=== PATIENT | female | born 1985 | race Hispanic/Latino ===

== ENCOUNTER 2018-07-25 00:33 | Emergency (ER) | payer SELFPAY ==
[2018-07-25] MEDS ORDERED: KETOROLAC 30 MG/ML INJ ONE (01:15)
[2018-07-25] MEDS ORDERED: NA CHLORIDE 0.9% 1,000 ML ONE (01:15)
[2018-07-25 01:24] LABS: Urine Blood 2+ (NEG); Urine Glucose NEGATIVE (NEG); Urine Protein TRACE (NEG); Urine Specific Gravity 1.025 (1.005-1.030)
[2018-07-25 01:26] LABS: Absolute Lymphocytes (CBC) 3.3 K/uL (0.7-4.9); Absolute Monocytes 0.5 K/uL (0.1-1.3); Absolute Neutrophil 2.7 K/uL (1.8-8.0); Basophils % 0.5 % (0-1.3); Eosinophils % 3.2 % (0-4.4); Hematocrit 36.9 % (36.0-45.0); Lymphocytes % 49.6 % (15.3-44.8); MPV 7.9 fL (7.6-11.3); Monocytes % 7.2 % (3.3-12.3); RBC Red Blood Cell Count 4.22 M/uL (3.86-4.86)
[2018-07-25 01:33] LABS: Urine Amorphous Sediment 4+ /HPF (NONE SEEN); Urine Bacteria <20 /HPF (<20); Urine Culture Reflex Order NOT NEEDED
[2018-07-25 01:37] LABS: ALT/SGPT 17 U/L (12-78); AST/SGOT 12 U/L (15-37); Albumin 3.5 g/dL (3.4-5.0); Alkaline Phosphatase 75 U/L (45-117); BUN Blood Urea Nitrogen 15 mg/dL (7-18); Bicarbonate 27 mmol/L (21-32); Bilirubin Direct < 0.1 mg/dL (0-0.2); Bilirubin Total 0.2 mg/dL (0.2-1.0); Glucose Level 114 mg/dL (74-106); Lipase 126 U/L (73-393); Potassium 3.7 mmol/L (3.5-5.1); Protein, Total 7.3 g/dL (6.4-8.2); Sodium Level 142 mmol/L (136-145)
--- NOTE | 2018-07-25 03:43 | ER ---
Nurse's Notes [facility] Name: Cornelia Phillips Age: 33 yrs Sex: Female : 1985 Arrival Date: 07/25/2018 Time: 00:35 Bed 15 Private MD: Diagnosis: Calculus of ureter-Right Presentation: 07/25 00:42 Presenting complaint: Patient states: R flank pain x 3 hours, all of a sudden; Denies lp1 any pain with urination, N/V. Transition of care: patient was not received from another setting of care. Onset of symptoms was July 24, 2018 at 22:00. Risk Assessment: Do you want to hurt yourself or someone else? Patient reports no desire to harm self or others. Initial Sepsis Screen: Does the patient meet any 2 criteria? No. Patient's initial sepsis screen is negative. Does the patient have a suspected source of infection? No. Patient's initial sepsis screen is negative. Care prior to arrival: None. 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 - Ebola Screening: : No symptoms or risks identified at this time. Screenin:45 Fall Risk None identified. lp1 01:00 Abuse screen: Denies threats or abuse. Nutritional screening: No deficits noted. jb4 Tuberculosis screening: No symptoms or risk factors identified. Assessment: 01:00 General: Appears in no apparent distress. uncomfortable, Behavior is calm, cooperative, jb4 appropriate for age. 01:00 Pain: Complains of pain in right low back and abdomen Pain does not radiate. Pain jb4 currently is 8 out of 10 on a pain scale. Quality of pain is described as burning. Neuro: Level of Consciousness is awake, alert, obeys commands, Oriented to person, place, time, situation. Cardiovascular: Patient's skin is warm and dry. Respiratory: Airway is patent Respiratory effort is even, unlabored, Respiratory pattern is regular, symmetrical. GI: Abdomen is flat, non-distended, Bowel sounds present X 4 quads. Abd is soft and non tender X 4 quads. Reports lower abdominal pain, upper abdominal pain. : No signs and/or symptoms were reported regarding the genitourinary system. EENT: No signs and/or symptoms were reported regarding the EENT system. Derm: Skin is intact, Skin is pink, warm \T\ dry. Musculoskeletal: Circulation, motion, and sensation intact. 02:00 Reassessment: Patient appears in no apparent distress at this time. Patient and/or jb4 family updated on plan of care and expected duration. Pain level reassessed. Patient is alert, oriented x 3, equal unlabored respirations, skin warm/dry/pink. 03:00 Reassessment: Patient appears in no apparent distress at this time. Patient and/or jb4 family updated on plan of care and expected duration. Pain level reassessed. Patient is alert, oriented x 3, equal unlabored respirations, skin warm/dry/pink. Patient states feeling better. 03:51 Reassessment: Pt waiting for IV Magnesium to finish prior to discharge. jb4 04:27 Reassessment: Patient appears in no apparent distress at this time. Patient and/or jb4 family updated on plan of care and expected duration. Pain level reassessed. Patient is alert, oriented x 3, equal unlabored respirations, skin warm/dry/pink. Pt left ED Ambulatory, feeling better. Patient states feeling better. Vital Signs: 00:44 BP 128 / 96; Pulse 84; Resp 16; Temp 98.5(O); Pulse Ox 98% on R/A; Weight 44 kg; Height lp1 4 ft. 11 in. (149.86 cm); Pain 8/10; 01:00 BP 107 / 73; Pulse 61; Resp 16; Pulse Ox 99% on R/A; jb4 02:00 BP 94 / 62; Pulse 60; Resp 18; Pulse Ox 99% on R/A; jb4 03:00 BP 91 / 61; Pulse 60; Resp 16; Pulse Ox 97% on R/A; jb4 04:20 BP 102 / 73; Pulse 76; Resp 16; Pulse Ox 100% on R/A; jb4 00:44 Body Mass Index 19.59 (44.00 kg, 149.86 cm) lp1 ED Course: 00:35 Patient arrived in ED. es 00:41 Prem Thompson PA is PHCP. cp 00:41 Abhilash Olivarez MD is Attending Physician. cp 00:44 Triage completed. lp1 00:44 Arm band placed on. lp1 00:46 Fredy Juan, NICHOLAS is Primary Nurse. jb4 00:56 Urine Microscopic Only Sent. oe 01:00 Patient has correct armband on for positive identification. Bed in low position. Call jb4 light in reach. Side rails up X 1. Pulse ox on. NIBP on. 01:00 Initial lab(s) drawn, by me, sent to lab. Inserted saline lock: 20 gauge in right jb4 antecubital area, using aseptic technique. Blood collected. 02:[address] via wheelchair. kw1 02:44 CT completed. Patient tolerated procedure well. Patient moved back from CT. kw1 02:45 CT Stone Protocol In Process Unspecified. EDMS 03:41 Jaspreet Harden MD is Referral Physician. cp 04:28 No provider procedures requiring assistance completed. IV discontinued, intact, jb4 bleeding controlled, No redness/swelling at site. Administered Medications: 01:10 Drug: TORadol 15 mg Route: IVP; Site: right antecubital; jb4 01:40 Follow up: Response: No adverse reaction; Pain is decreased jb4 01:10 Drug: NS 0.9% (20 ml/kg) 20 ml/kg Route: IV; Rate: 1 bolus; Site: right antecubital; jb4 02:00 Follow up: Response: No adverse reaction; IV Status: Completed infusion; IV Intake: jb4 880ml 03:39 Drug: Flomax 0.4 mg Route: PO; jb4 04:26 Follow up: Response: No adverse reaction jb4 03:51 Drug: Magnesium Sulfate 1 grams Route: IVPB; Infused Over: 30 hrs; Site: right jb4 antecubital; 04:21 Follow up: Response: No adverse reaction; IV Status: Completed infusion; IV Intake: jb4 100ml 03:52 Not Given (Physician Discretion): NS 0.9% (20 ml/kg) 20 ml/kg IV at 1 bolus once jb4 03:53 Drug: Bactrim (160 mg-800 mg (DS) 1 tablet Route: PO; jb4 04:26 Follow up: Response: No adverse reaction jb4 Intake: 02:00 IV: 880ml; Total: 880ml. jb4 04:21 IV: 100ml; Total: 980ml. jb4 Outcome: 03:42 Discharge ordered by MD. bridget 04:28 Discharged to home ambulatory. jb4 04:28 Condition: stable 04:28 Discharge instructions given to patient, Instructed on discharge instructions, follow up and referral plans. medication usage, Demonstrated understanding of instructions, follow-up care, medications, Prescriptions given X 4. 04:29 Patient left the ED. jb4 Signatures: Dispatcher [employer] Mackenzie Borden Laura, RN RN lp1 Prem Thompson PA PA cp Bryson, James, RN RN jb4 Joey Rizzo Kimberly kw1
--- NOTE | 2018-07-25 03:43 | EDPHYS ---
Physician Documentation [facility] Name: Cornelia Phillips Age: 33 yrs Sex: Female : 1985 Arrival Date: 07/25/2018 Time: 00:35 Bed 15 Private MD: ED Physician Abhilash Olivarez HPI: 07/25 00:48 This 33 yrs old Female presents to ER via Ambulatory with complaints of Flank cp Pain. 00:48 The patient complains of pain in the right mid back and right low back. The pain does cp not radiate. Onset: The symptoms/episode began/occurred suddenly, 2 hour(s) ago. 00:48 Associated signs and symptoms: Pertinent negatives: dysuria, fever, pain radiating to cp the lower extremities, vomiting. 00:48 Severity of pain: in the emergency department the pain is unchanged despite home cp interventions. 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 - Ebola Screening: : No symptoms or risks identified at this time. ROS: 00:49 Constitutional: Negative for body aches, chills, fever, poor PO intake. cp 00:49 Cardiovascular: Negative for chest pain, palpitations. 00:49 Respiratory: Negative for cough, shortness of breath, wheezing. 00:49 Abdomen/GI: Negative for abdominal pain, vomiting, diarrhea, constipation. 00:49 Back: Positive for flank pain, on the right, Negative for radiated pain. 00:49 Skin: Negative for cellulitis, rash. 00:49 Neuro: Negative for altered mental status, headache, weakness. 00:49 All other systems are negative. Exam: 00:55 Constitutional: The patient appears in no acute distress, alert, awake, non-toxic, well cp developed, well nourished. 00:55 Head/Face: Normocephalic, atraumatic. cp 00:55 Eyes: Periorbital structures: appear normal, Conjunctiva: normal, no exudate, no injection, Sclera: no appreciated abnormality, Lids and lashes: appear normal, bilaterally. 00:55 ENT: External ear(s): are unremarkable, Nose: is normal, Mouth: Lips: moist, Oral mucosa: moist, Posterior pharynx: Airway: no evidence of obstruction, patent. 00:55 Chest/axilla: Inspection: normal, Palpation: is normal, no crepitus, no tenderness. 00:55 Cardiovascular: Rate: normal, Rhythm: regular. 00:55 Respiratory: the patient does not display signs of respiratory distress, Respirations: normal, no use of accessory muscles, no retractions, no splinting, no tachypnea, labored breathing, is not present, Breath sounds: are clear throughout, no decreased breath sounds, no stridor, no wheezing. 00:55 Abdomen/GI: Inspection: abdomen appears normal, Bowel sounds: active, all quadrants, Palpation: soft, in all quadrants, mild abdominal tenderness, in the right upper quadrant, rebound tenderness, is not appreciated, involuntary guarding, is not appreciated. 00:55 Back: ROM is normal, CVA tenderness, that is moderate, is noted on the right. 00:55 Skin: cellulitis, is not appreciated, no rash present. Vital Signs: 00:44 BP 128 / 96; Pulse 84; Resp 16; Temp 98.5(O); Pulse Ox 98% on R/A; Weight 44 kg; Height lp1 4 ft. 11 in. (149.86 cm); Pain 8/10; 01:00 BP 107 / 73; Pulse 61; Resp 16; Pulse Ox 99% on R/A; jb4 02:00 BP 94 / 62; Pulse 60; Resp 18; Pulse Ox 99% on R/A; jb4 03:00 BP 91 / 61; Pulse 60; Resp 16; Pulse Ox 97% on R/A; jb4 04:20 BP 102 / 73; Pulse 76; Resp 16; Pulse Ox 100% on R/A; jb4 00:44 Body Mass Index 19.59 (44.00 kg, 149.86 cm) lp1 MDM: 00:47 Patient medically screened. cp 01:00 Differential diagnosis: nephrolithiasis, pyelonephritis, UTI, diverticulitis, cp pancreatitis, cholecystitis. 03:40 Data reviewed: vital signs, nurses notes, lab test result(s), radiologic studies, CT cp scan, and as a result, I will discharge patient. 03:40 Counseling: I had a detailed discussion with the patient and/or guardian regarding: the cp historical points, exam findings, and any diagnostic results supporting the discharge/admit diagnosis, lab results, radiology results, to return to the emergency department if symptoms worsen or persist or if there are any questions or concerns that arise at home. Response to treatment: the patient's symptoms have markedly improved after treatment, VSS. Pain markedly improved, and as a result, I will discharge patient. 07/25 00:47 Order name: Basic Metabolic Panel 07/25 00:47 Order name: CBC with Diff 07/25 00:47 Order name: Creatinine for Radiology; Complete Time: 02:21 07/25 00:47 Order name: Hepatic Function; Complete Time: 02:21 cp 07/25 03:31 Interpretation: Normal except: AST 12; GLOB 3.8; A/G 0.9. 07/25 00:47 Order name: Lipase; Complete Time: 02:21 cp 07/25 00:47 Order name: Urine Microscopic Only; Complete Time: 02:21 cp 07/25 02:21 Interpretation: Normal except: URBC 5-10; AMORPH 4+. cp 07/25 00:48 Order name: Basic Metabolic Panel; Complete Time: 02:21 EDMS 07/25 03:31 Interpretation: Normal except: CL 108; GLUC 114. 07/25 00:48 Order name: CBC with Automated Diff; Complete Time: 01:31 EDMS 07/25 01:31 Interpretation: Normal except: MCV 87.3; PLT 437; SHANIQUA% 39.5; LYM% 49.6. cp 07/25 00:49 Order name: CT Stone Protocol 07/25 01:04 Order name: Urine Dipstick--Ancillary (enter results); Complete Time: : mw2 07/25 01:04 Order name: Urine --Ancillary (enter results); Complete Time: : mw2 07/25 00:47 Order name: IV Saline Lock; Complete Time: : cp 07/25 00:47 Order name: Labs collected and sent; Complete Time: : cp 07/25 00:47 Order name: Urine Dipstick-Ancillary (obtain specimen); Complete Time: 00:56 cp 07/25 00:47 Order name: Urine Test (obtain specimen); Complete Time: 00:56 cp 07/25 03:30 Order name: PO challenge; Complete Time: 03:39 cp Administered Medications: 01:10 Drug: TORadol 15 mg Route: IVP; Site: right antecubital; jb4 01:40 Follow up: Response: No adverse reaction; Pain is decreased jb4 01:10 Drug: NS 0.9% (20 ml/kg) 20 ml/kg Route: IV; Rate: 1 bolus; Site: right antecubital; jb4 02:00 Follow up: Response: No adverse reaction; IV Status: Completed infusion; IV Intake: jb4 880ml 03:39 Drug: Flomax 0.4 mg Route: PO; jb4 04:26 Follow up: Response: No adverse reaction jb4 03:51 Drug: Magnesium Sulfate 1 grams Route: IVPB; Infused Over: 30 hrs; Site: right jb4 antecubital; 04:21 Follow up: Response: No adverse reaction; IV Status: Completed infusion; IV Intake: jb4 100ml 03:52 Not Given (Physician Discretion): NS 0.9% (20 ml/kg) 20 ml/kg IV at 1 bolus once jb4 03:53 Drug: Bactrim (160 mg-800 mg (DS) 1 tablet Route: PO; jb4 04:26 Follow up: Response: No adverse reaction jb4 Disposition: 03:50 Chart complete. cp 06:13 Co-signature as Attending Physician, Abhilash Olivarez MD I agree with the assessment and 4 plan of care. Disposition: 07/25/18 03:42 Discharged to Home. Impression: Calculus of ureter - Right. - Condition is Stable. - Discharge Instructions: Kidney Stones, Renal Colic. - Prescriptions for Tylenol- Codeine #3 300-30 mg Oral Tablet - take 2 tablets by ORAL route every 6 hours As needed; 20 tablet. Zofran 4 mg Oral Tablet - take 1 tablet by ORAL route every 12 hours As needed; 20 tablet. Flomax 0.4 mg Oral Capsule, Sust. Release 24 hr - take 1 capsule by ORAL route once daily As needed 1/2 hour following the same meal each day; 5 capsule. Bactrim DS 800- 160 mg Oral Tablet - take 1 tablet by ORAL route every 12 hours for 7 days; 14 tablet. - Medication Reconciliation Form, Thank You Letter, Antibiotic Education, Prescription Opioid Use form. - Follow up: Jaspreet Harden MD; When: 2 - 3 days; Reason: pain continues. - Problem is new. - Symptoms have improved. Signatures: Dispatcher [employer] EDMS Lita Wetzel RN RN lp1 Prem Thompson PA PA cp Bryson, James, RN RN jb4 Abhilash Olivarez MD MD tw4 Corrections: (The following items were deleted from the chart) 04:29 03:42 07/25/2018 03:42 Discharged to Home. Impression: Calculus of ureter - Right. jb4 Condition is Stable. Forms are Medication Reconciliation Form, Thank You Letter, Antibiotic Education, Prescription Opioid Use. Follow up: Jaspreet Harden; When: 2 - 3 days; Reason: pain continues. Problem is new. Symptoms have improved. cp
[2018-07-25] MEDS ORDERED: TAMSULOSIN 0.4 MG SR CAP ONE (03:49)
[2018-07-25] MEDS ORDERED: SMZ./TMP. 800/160 MG TABLET ONE (03:54)
[2018-07-25] MEDS ORDERED: MAGNESIUM SULFATE 1 gm IVPB 1 GM/100 ML BAG IV ONE (03:54)
--- NOTE | 2018-07-25 11:03 | RAD REPORT ---
EXAM DESCRIPTION: CT - Stone Protocol - 07/25/2018 4:02 am CLINICAL HISTORY: The patient is 33 years old and is Female; right flank pain TECHNIQUE: Axial computed tomography images of the abdomen and pelvis without intravenous contrast. Sagittal and coronal reformatted images were created and reviewed. This CT exam was performed usi ng one or more of the following dose reduction techniques: automated exposure control, adjustment o f the mA and/or kV according to patient size, and/or use of iterative reconstruction technique. COMPARISON: None. FINDINGS: LUNG BASES: Unremarkable. No mass. No consolidation. ABDOMEN: LIVER: Unremarkable. GALLBLADDER AND BILE DUCTS: Unremarkable. No calcified stones. No ductal dilation. PANCREAS: Unremarkable. No ductal dilation. SPLEEN: Unremarkable. No splenomegaly. ADRENALS: Unremarkable. No mass. KIDNEYS AND URETERS: Multiple nonobstructive bilateral renal stones are present in the collecting systems. Mild right hydronephrosis and hydroureter. A 3 mm radiopaque stone is seen in the proximal r ight ureter (series 2 one, image 57). No intrarenal stone in the urinary bladder. STOMACH AND BOWEL: Unremarkable. No obstruction. No mucosal thickening. PELVIS: APPENDIX: The appendix is seen and is within normal limits BLADDER: See above. REPRODUCTIVE: Unremarkable as visualized. ABDOMEN and PELVIS: INTRAPERITONEAL SPACE: Unremarkable. No free air. No significant fluid collection. BONES/JOINTS: No acute fracture. No dislocation. SOFT TISSUES: Unremarkable. VASCULATURE: Unremarkable. No abdominal aortic aneurysm. LYMPH NODES: Unremarkable. No enlarged lymph nodes. IMPRESSION: 1. 3 mm obstructive proximal right ureteral stone with mild hydronephrosis/proximal hy droureter. 2. Additional nonobstructive bilateral renal calculi. Electronically signed by: Tj Vasquez DO 07/25/2018 2:54 AM CDT Due to temporary technical issues with the PACS/Fluency reporting system, reports are being signed by the in house radiologist as a courtesy to ensure prompt reporting. The interpreting radiologist is hemal jin responsible for the content of the report.
== END 2018-07-25 04:29 | disposition home or self-care (01) ==
LOC: ER 00:33
DX: N20.1 Calculus of ureter (principal); Z72.0 Tobacco use; Z88.0 Allergy status to penicillin; Z88.1 Allergy status to other antibiotic agents
CPT/HCPCS: 36415; 74176; 76377; 80048; 80076; 81003; 81015; 81025; 83690; 85025; 96361; 96365; 96375; 99284; J3475; J7030

== ENCOUNTER 2018-08-14 11:24 | Emergency (ER) | payer SELFPAY ==
[2018-08-14 12:22] LABS: Urine Blood NEGATIVE (NEG); Urine Glucose NEGATIVE (NEG); Urine Protein 2+ (NEG); Urine Specific Gravity >1.030 (1.005-1.030)
[2018-08-14 12:23] LABS: Absolute Lymphocytes (CBC) 1.8 K/uL (0.7-4.9); Absolute Monocytes 0.2 K/uL (0.1-1.3); Absolute Neutrophil 2.7 K/uL (1.8-8.0); Basophils % 0.3 % (0-1.3); Eosinophils % 2.9 % (0-4.4); Hematocrit 36.5 % (36.0-45.0); Lymphocytes % 37.8 % (15.3-44.8); MPV 8.4 fL (7.6-11.3); Monocytes % 4.4 % (3.3-12.3); RBC Red Blood Cell Count 4.13 M/uL (3.86-4.86)
--- NOTE | 2018-08-14 12:42 | RAD REPORT ---
EXAM DESCRIPTION: CT - Stone Protocol - 08/14/2018 12:35 pm CLINICAL HISTORY: Flank pain. persistent pain for 3 weeks, not improving, + kidney stone COMPARISON: Stone Protocol dated 07/25/2018 TECHNIQUE: Axial images were obtained without oral or IV contrast. Lack of contrast limits solid org an and vascular assessment. The [id number] spans the entirety of the system partially obscuring uppermost abdomen and lung bases. Coronal reformatted images were obtained and reviewed. All CT scans are performed using dose optimization technique as appropriate and may include automated exposure control or mA/KV adjustment according to patient size. FINDINGS: The lower lung cook are clear. Imaged portions of the liver and spleen show no suspicious findings on non-contrast imaging. The panc reas and adrenal glands are normal. No pathologic lymphadenopathy in the abdomen or pelvis. Punctate bilateral nephrolithiasis is present without hydronephrosis. No bowel obstruction, free air, free fluid or abscess. Normal appendix noted. No significant bony abnormality. IMPRESSION: Punctate bilateral nephrolithiasis without hydronephrosis.
[2018-08-14 12:43] LABS: ALT/SGPT 21 U/L (12-78); AST/SGOT 14 U/L (15-37); Albumin 3.6 g/dL (3.4-5.0); Alkaline Phosphatase 58 U/L (45-117); BUN Blood Urea Nitrogen 7 mg/dL (7-18); Bicarbonate 25 mmol/L (21-32); Bilirubin Direct 0.1 mg/dL (0-0.2); Bilirubin Total 0.6 mg/dL (0.2-1.0); Glucose Level 89 mg/dL (74-106); Potassium 3.7 mmol/L (3.5-5.1); Protein, Total 6.8 g/dL (6.4-8.2); Sodium Level 143 mmol/L (136-145)
--- NOTE | 2018-08-14 13:01 | ER ---
Nurse's Notes [facility] Name: Cornelia Phillips Age: 33 yrs Sex: Female : 1985 Arrival Date: 08/14/2018 Time: 11:26 Bed 26 Private MD: Diagnosis: Urinary tract infection, site not specified Presentation: 08/14 11:28 Presenting complaint: Patient states: right flank pain and burning with urination that aa5 began 3-4 days ago. Pt denies nausea, denies vomiting. Transition of care: patient was not received from another setting of care. Onset of symptoms was August 2018. Risk Assessment: Do you want to hurt yourself or someone else? Patient reports no desire to harm self or others. Initial Sepsis Screen: Does the patient meet any 2 criteria? No. Patient's initial sepsis screen is negative. Does the patient have a suspected source of infection? No. Patient's initial sepsis screen is negative. Care prior to arrival: None. 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 - Social history:: Smoking status: Patient uses tobacco products, 3 cigarettes a day . - Ebola Screening: : No symptoms or risks identified at this time. - Family history:: not pertinent. - Hospitalizations: : No recent hospitalization is reported. Screenin:00 Abuse screen: Denies threats or abuse. Denies injuries from another. Nutritional aj1 screening: No deficits noted. Tuberculosis screening: No symptoms or risk factors identified. 13:20 Fall Risk None identified. aj1 Assessment: 12:00 General: Appears in no apparent distress. uncomfortable, Behavior is calm, cooperative, aj1 appropriate for age. Pain: Complains of pain in right mid back Pain currently is 7 out of 10 on a pain scale. Neuro: Level of Consciousness is awake, alert, obeys commands, Oriented to person, place, time, situation. Cardiovascular: Patient's skin is warm and dry. Respiratory: Airway is patent Respiratory effort is even, unlabored, Respiratory pattern is regular, symmetrical. GI: No signs and/or symptoms were reported involving the gastrointestinal system. : Reports burning with urination. EENT: No signs and/or symptoms were reported regarding the EENT system. Derm: No signs and/or symptoms reported regarding the dermatologic system. Skin is pink, warm \T\ dry. normal. Musculoskeletal: No signs and/or symptoms reported regarding the musculoskeletal system. Circulation, motion, and sensation intact. 13:00 Reassessment: Patient appears in no apparent distress at this time. No changes from aj1 previously documented assessment. Patient and/or family updated on plan of care and expected duration. Pain level reassessed. Patient is alert, oriented x 3, equal unlabored respirations, skin warm/dry/pink. Vital Signs: 11:29 BP 119 / 85; Pulse 85; Resp 16 S; Temp 98.0(TE); Pulse Ox 99% on R/A; Weight 44 kg (R); aa5 Height 4 ft. 11 in. (149.86 cm) (R); Pain 7/10; 13:32 BP 107 / 56; Pulse 63; Resp 18; Pulse Ox 99% on R/A; aj1 11:29 Body Mass Index 19.59 (44.00 kg, 149.86 cm) aa5 ED Course: 11:26 Patient arrived in ED. aa5 11:28 Triage completed. aa5 11:30 Arm band placed on. aa5 11:31 Fadi Corcker MD is Attending Physician. rn 11:46 Sandi Meza, NICHOLAS is Primary Nurse. aj1 12:00 Patient has correct armband on for positive identification. aj1 12:00 No provider procedures requiring assistance completed. aj1 12:00 Inserted saline lock: 20 gauge in right antecubital area, using aseptic technique. aj1 Blood collected. 12:35 CT Stone Protocol In Process Unspecified. EDMS 13:32 IV discontinued, intact, bleeding controlled, No redness/swelling at site. Pressure aj1 dressing applied. Administered Medications: No medications were administered Outcome: 13:01 Discharge ordered by . rn 13:33 Discharged to home ambulatory. aj1 13:33 Condition: good 13:33 Discharge instructions given to patient, Instructed on discharge instructions, follow up and referral plans. no drinking with medication, no driving heavy equipment, medication usage, Demonstrated understanding of instructions, follow-up care, medications, Prescriptions given X 3. 13:33 Patient left the ED. aj1 Signatures: Dispatcher [employer] EDSandi Lynn RN RN aj1 Fadi Crocker MD MD rn Calderon, Audri, RN RN aa5 Corrections: (The following items were deleted from the chart) 13:33 13:32 BP 107 / 56; Pulse 18bpm; Resp 63bpm; Pulse Ox 99% RA; aj1 aj1
--- NOTE | 2018-08-14 13:01 | EDPHYS ---
Physician Documentation [facility] Name: Cornelia Phillips Age: 33 yrs Sex: Female : 1985 Arrival Date: 08/14/2018 Time: 11:26 Bed 26 Private MD: ED Physician Fadi Crocker HPI: 08/14 11:51 This 33 yrs old Female presents to ER via Ambulatory with complaints of Flank rn Pain. 11:51 The patient complains of pain in the right mid back. The pain does not radiate. Onset: rn The symptoms/episode began/occurred 3 week(s) ago. Modifying factors: The symptoms are alleviated by nothing. the symptoms are aggravated by nothing. Associated signs and symptoms: Pertinent positives: dysuria, urinary frequency. Severity of pain: At its worst the pain was moderate in the emergency department the pain is unchanged. The patient has experienced similar episodes in the past. REpots seen here about 3 weeks ago for similar pain, told had kidney stone, no fever, no trauma, Reports dysuria and increased frequency, told had kidney stone, not sure if passed it, reports pain returning. . PHOTOGRAPHIC DOUBLE: 11:29 LMP 06/2018 aa5 Historical: - Allergies: 11:29 Amoxicillin; aa5 11:29 Augmentin; aa5 11:29 Azithromycin; aa5 11:29 Erythromycin; aa5 11:29 PENICILLINS; aa5 11:29 tramadol; aa5 - PMHx: 11:29 Hypothyroidism; aa5 - PSHx: 11:29 ; aa5 - Immunization history:: Flu vaccine is not up to date. - Social history:: Smoking status: Patient uses tobacco products, 3 cigarettes a day . - Ebola Screening: : No symptoms or risks identified at this time. - Family history:: not pertinent. - Hospitalizations: : No recent hospitalization is reported. ROS: 11:51 Constitutional: Negative for fever, chills, and weight loss, Eyes: Negative for injury, rn pain, redness, and discharge, Cardiovascular: Negative for chest pain, palpitations, and edema, Respiratory: Negative for shortness of breath, cough, wheezing, and pleuritic chest pain, Abdomen/GI: Negative for abdominal pain, nausea, vomiting, diarrhea, and constipation, Back: + right flank pain : Negative for injury, bleeding, discharge, and swelling, MS/Extremity: Negative for injury and deformity, Skin: Negative for injury, rash, and discoloration, Neuro: Negative for headache, weakness, numbness, tingling, and seizure. Exam: 11:51 Constitutional: This is a well developed, well nourished patient who is awake, alert, rn and in no acute distress. Head/Face: Normocephalic, atraumatic. ENT: MMM Abdomen/GI: soft, non-tender, no rebound Back: No spinal tenderness. No costovertebral tenderness. Full range of motion. Skin: Warm, dry with normal turgor. Normal color with no rashes, no lesions, and no evidence of cellulitis. MS/ Extremity: Pulses equal, no cyanosis. Neurovascular intact. Full, normal range of motion. Equal circumference. Neuro: Awake and alert, GCS 15, oriented to person, place, time, and situation. Cranial nerves II-XII grossly intact. Motor strength 5/5 in all extremities. Sensory grossly intact. Vital Signs: 11:29 BP 119 / 85; Pulse 85; Resp 16 S; Temp 98.0(TE); Pulse Ox 99% on R/A; Weight 44 kg (R); aa5 Height 4 ft. 11 in. (149.86 cm) (R); Pain 7/10; 13:32 BP 107 / 56; Pulse 63; Resp 18; Pulse Ox 99% on R/A; aj1 11:29 Body Mass Index 19.59 (44.00 kg, 149.86 cm) aa5 MDM: 11:31 Patient medically screened. rn 13:00 Differential diagnosis: nephrolithiasis, UTI. Data reviewed: vital signs, nurses notes, rn cvicu test result(s), radiologic studies, CT scan, and as a result, I will discharge patient. Counseling: I had a detailed discussion with the patient and/or guardian regarding: the historical points, exam findings, and any diagnostic results supporting the discharge/admit diagnosis, lab results, radiology results, the need for outpatient follow up, to return to the emergency department if symptoms worsen or persist or if there are any questions or concerns that arise at home. Special discussion: I discussed with the patient/guardian in detail that at this point there is no indication for admission to the hospital. It is understood, however, that if the symptoms persist or worsen the patient needs to return immediately for re-evaluation. 08/14 11:44 Order name: Urine Dipstick--Ancillary (enter results); Complete Time: 12:43 bd 08/14 11:44 Order name: Urine --Ancillary (enter results); Complete Time: 12:43 bd 08/14 11:51 Order name: Basic Metabolic Panel; Complete Time: 12:43 rn 08/14 11:51 Order name: CBC with Diff; Complete Time: 12:43 rn 08/14 11:51 Order name: Hepatic Function; Complete Time: 12:43 rn 08/14 11:51 Order name: Urine Microscopic Only rn 08/14 11:51 Order name: IV Saline Lock; Complete Time: 12:50 rn 08/14 11:51 Order name: Labs collected and sent; Complete Time: 12:50 rn 08/14 11:51 Order name: CT Stone Protocol; Complete Time: 12:43 rn 08/14 13:09 Order name: Urine Culture EDMS Administered Medications: No medications were administered Disposition: 08/14/18 13:01 Discharged to Home. Impression: Urinary tract infection, site not specified. - Condition is Stable. - Discharge Instructions: Dysuria, Urinary Tract Infection, Adult. - Prescriptions for Pyridium 200 mg Oral Tablet - take 1 tablet by ORAL route every 8 hours for 3 days; 9 tablet. Tylenol- Codeine #3 300-30 mg Oral Tablet - take 1 tablet by ORAL route every 6 hours As needed; 15 tablet. Macrobid 100 mg Oral Capsule - take 1 capsule by ORAL route every 12 hours for 7 days; 14 capsule. - Work release form, Medication Reconciliation Form, Thank You Letter, Antibiotic Education, Prescription Opioid Use form. - Follow up: Private Physician; When: As needed; Reason: Recheck today's complaints, Re-evaluation by your physician. - Problem is an ongoing problem. - Symptoms have improved. Signatures: Dispatcher [employer] EDMS Sandi Meza RN RN aj1 Fadi Crocker MD MD rn Calderon, Audri, RN RN aa5 Corrections: (The following items were deleted from the chart) 13:33 13:01 08/14/2018 13:01 Discharged to Home. Impression: Urinary tract infection, site aj1 not specified. Condition is Stable. Forms are Medication Reconciliation Form, Thank You Letter, Antibiotic Education, Prescription Opioid Use. Follow up: Private Physician; When: As needed; Reason: Recheck today's complaints, Re-evaluation by your physician. Problem is an ongoing problem. Symptoms have improved. rn
[2018-08-14 13:08] LABS: Urine Bacteria >50 /HPF (<20); Urine Culture Reflex Order REFLEXED; Urine Mucus MOD /HPF (NONE SEEN)
== END 2018-08-14 13:33 | disposition home or self-care (01) ==
LOC: ER 11:24
DX: N39.0 Urinary tract infection, site not specified (principal); E03.9 Hypothyroidism, unspecified; Z88.1 Allergy status to other antibiotic agents; Z88.5 Allergy status to narcotic agent; Z88.0 Allergy status to penicillin
CPT/HCPCS: 36415; 74176; 76377; 80048; 80076; 81003; 81015; 81025; 85025; 87086; 87088; 99284

== ENCOUNTER 2018-10-05 18:02 | Emergency (ER) | payer SELFPAY ==
[2018-10-05] MEDS ORDERED: NA CHLORIDE 0.9% 1,000 ML ONE (18:44)
[2018-10-05 18:45] LABS: Absolute Lymphocytes (CBC) 2.5 K/uL (0.7-4.9); Absolute Monocytes 0.4 K/uL (0.1-1.3); Absolute Neutrophil 5.3 K/uL (1.8-8.0); Basophils % 0.5 % (0-1.3); Hematocrit 37.1 % (36.0-45.0); MPV 8.1 fL (7.6-11.3); Monocytes % 4.3 % (3.3-12.3); RBC Red Blood Cell Count 4.16 M/uL (3.86-4.86)
[2018-10-05 19:05] LABS: BUN Blood Urea Nitrogen 8 mg/dL (7-18); Bicarbonate 24 mmol/L (21-32); Glucose Level 110 mg/dL (74-106); Potassium 3.1 mmol/L (3.5-5.1); Sodium Level 142 mmol/L (136-145); Thyroid Stimulating Hormone 0.446 uIU/mL (0.360-3.740)
--- NOTE | 2018-10-05 19:28 | ER ---
Nurse's Notes [facility] Name: Cornelia Phillips Age: 33 yrs Sex: Female : 1985 Arrival Date: 10/05/2018 Time: 18:04 Bed 2 Private MD: Diagnosis: Heat fatigue, transient;Hypokalemia Presentation: 10/05 18:05 Presenting complaint: EMS states: pt has a hx of seizure, family states the doctor wont tw2 give her seizure medication because she is underweight, family states that she is having a high stress level right now, they are moving, family states they told her to go lay down, and then they went to check on her and found her seizing, total of 7 minutes, we used a NPA to facilitate respiratory efforts, we gave 5mg Versed when we arrived, then immediately pt started having a panic attack, vs stable, blood sugar 106 mg/dL. Transition of care: patient was not received from another setting of care. Onset of symptoms was October 05, 2018. Risk Assessment: Do you want to hurt yourself or someone else? Patient reports no desire to harm self or others. Initial Sepsis Screen: Does the patient meet any 2 criteria? No. Patient's initial sepsis screen is negative. Does the patient have a suspected source of infection? No. Patient's initial sepsis screen is negative. Care prior to arrival: nasal trumpet, IV initiated. 20 GA, in the left wrist, Glucose check: 106. 18:05 Method Of Arrival: EMS: [facility] tw2 18:05 Acuity: LYLA 2 tw2 18:08 Note EMS states "we did remove the nasal trumpet once she came around". tw2 Triage Assessment: 18:09 General: Appears in no apparent distress. slender, Behavior is cooperative. Pain: tw2 Complains of pain in Headache. EENT: No signs and/or symptoms were reported regarding the EENT system. Neuro: Reports headache. Cardiovascular: Heart tones S1 S2 Patient's skin is warm and dry. Respiratory: Airway is patent Respiratory effort is Respiratory pattern is regular, symmetrical, Breath sounds are clear bilaterally. GI: No signs and/or symptoms were reported involving the gastrointestinal system. Abdomen is flat, Bowel sounds present X 4 quads. : No signs and/or symptoms were reported regarding the genitourinary system. Derm: No signs and/or symptoms reported regarding the dermatologic system. Musculoskeletal: Range of motion: intact in all extremities. Historical: - Allergies: 18:13 Augmentin; tw2 18:13 Amoxicillin; tw2 18:13 Azithromycin; tw2 18:13 Erythromycin; tw2 18:13 PENICILLINS; tw2 18:13 tramadol; tw2 - PMHx: 18:13 Hypothyroidism; Seizures; tw2 - PSHx: 18:13 ; tw2 - Immunization history:: Adult Immunizations. - Social history:: Smoking status: . - Ebola Screening: : Patient denies travel to an Ebola-affected area in the 21 days before illness onset. Screenin:13 Abuse screen: Denies threats or abuse. Nutritional screening: No deficits noted. tw2 Tuberculosis screening: No symptoms or risk factors identified. Fall Risk None identified. Assessment: 18:11 Reassessment: see triage assessment. tw2 19:01 Reassessment: Patient appears in no apparent distress at this time. No changes from tw2 previously documented assessment. Patient and/or family updated on plan of care and expected duration. Pain level reassessed. Patient is alert, oriented x 3, equal unlabored respirations, skin warm/dry/pink. 19:15 Reassessment: Patient appears in no apparent distress at this time. Patient and/or cc3 family updated on plan of care and expected duration. Pain level reassessed. Patient is alert, oriented x 3, equal unlabored respirations, skin warm/dry/pink. Received this female patient from morning shift NICHOLAS Bowling as a case of probable seizure. With IV cannula gauge 20 at the left forearm with ongoing NS 1liter at 125 mL/hr infusing well. Patient denies pain at this time. 19:45 Reassessment: Patient appears in no apparent distress at this time. Patient is alert, ak1 oriented x 3, equal unlabored respirations, skin warm/dry/pink. pt assisted to bedside commode. Patient states feeling better. Patient states symptoms have improved. 19:45 Reassessment: Patient appears in no apparent distress at this time. Patient is alert, ak1 oriented x 3, equal unlabored respirations, skin warm/dry/pink. pt ambulatory to wheelchair at discharge. pt left with family member. Patient denies pain at this time. Patient states feeling better. Patient states symptoms have improved. Vital Signs: 18:10 BP 105 / 78; Pulse 101; Resp 13; Temp 98.6(O); Pulse Ox 100% on R/A; Weight 45.81 kg tw2 (R); Height 5 ft. 4 in. (162.56 cm); Pain 9/10; 19:01 BP 107 / 67; Pulse 64; Resp 17; Pulse Ox 99% on R/A; tw2 20:08 BP 113 / 74; Pulse 80; Resp 16; Temp 98.4(TE); Pulse Ox 99% on R/A; Pain 0/10; ak1 18:10 Body Mass Index 17.34 (45.81 kg, 162.56 cm) tw2 [place] Coma Score: 18:09 Eye Response: spontaneous(4). Verbal Response: oriented(5). Motor Response: obeys tw2 commands(6). Total: 15. ED Course: 18:04 Patient arrived in ED. tw2 18:08 Triage completed. tw2 18:10 Arm band placed on. tw2 18:11 Placed in gown. Call light in reach. Side rails up X 1. Side rails up X2. Adult w/ tw2 patient. Seizure precautions initiated. monitoring and evaluation advisor on. Pulse ox on. NIBP on. Warm blanket given. 18:15 Vandana Wells FNP-C [facility]. snw 18:15 Aguila Hall MD is Attending Physician. snw 19:00 Report given to NICHOLAS Mccarthy. tw2 19:03 Shari Velazco is Primary Nurse. cc3 20:09 No provider procedures requiring assistance completed. IV discontinued, intact, ak1 bleeding controlled, No redness/swelling at site. Pressure dressing applied, 20g to left wrist in place prior to this nurse taking over care. the 20g in left wrist was removed prior to discharge. Administered Medications: 18:36 Drug: NS 0.9% 1000 ml Route: IV; Rate: 125 ml/hr; Site: left forearm; ae4 20:00 Follow up: Response: No adverse reaction; IV Status: Order to discontinue infusion; IV cc3 Intake: 125ml ; patient ordered for discharge home 19:25 Drug: Potassium Effervescent Tablet 50 mEq Route: PO; cc3 19:30 Follow up: Response: No adverse reaction cc3 Intake: 20:00 IV: 125ml; Total: 125ml. cc3 Outcome: 19:27 Discharge ordered by . lalit 20:10 Discharged to home via wheelchair, with family. ak1 20:10 Condition: improved 20:10 Discharge instructions given to patient, family, Instructed on discharge instructions, follow up and referral plans. Demonstrated understanding of instructions, follow-up care. 20:10 Patient left the ED. ak1 Signatures: Vandana Wells, HEAT SEAL OPERATOR-C HEAT SEAL OPERATOR-Csnw Jazmine Maher, RN RN ak1 Tawnya Rivera RN RN tw2 Shari Velazco cc3 Unruly Patiño, RN RN ae4 Corrections: (The following items were deleted from the chart) 10/06 01:07 01:06 Response: No adverse reaction; IV Status: Order to discontinue infusion; IV cc3 Intake: 125ml ; patient ordered for discharge home cc3
--- NOTE | 2018-10-05 19:28 | EDPHYS ---
Physician Documentation [facility] Name: Cornelia Phillips Age: 33 yrs Sex: Female : 1985 Arrival Date: 10/05/2018 Time: 18:04 Bed 2 Private MD: ED Physician Aguila Hall HPI: 10/05 18:28 This 33 yrs old Female presents to ER via EMS with complaints of Probable snw Seizure. 18:28 The patient presents after having a single isolated seizure, that lasted 7 minute(s). snw Character of seizure(s): Motor activity: generalized, Apnea: the patient did not experience apnea, Circulation: the patient did not experience evidence of pulse disturbance. Seizure onset: just prior to arrival. Context: the seizure(s) was witnessed, by family, Niece. EMS care: versed, IM. Current symptoms: Currently, the patient is not experiencing any symptoms. The patient has experienced similar episodes in the past, multiple times. The patient has not recently seen a physician. Family states she, Pt, and Pt's Sister all have seizures due to stress. Pt was moving furniture and got too tired and hot and went to lay on a bed. As Niece entered the room pt began having a seizure . Historical: - Allergies: 18:13 Augmentin; tw2 18:13 Amoxicillin; tw2 18:13 Azithromycin; tw2 18:13 Erythromycin; tw2 18:13 PENICILLINS; tw2 18:13 tramadol; tw2 - PMHx: 18:13 Hypothyroidism; Seizures; tw2 - PSHx: 18:13 ; tw2 - Immunization history:: Adult Immunizations. - Social history:: Smoking status: . - Ebola Screening: : Patient denies travel to an Ebola-affected area in the 21 days before illness onset. ROS: 18:28 Constitutional: Negative for fever, chills, and weight loss, Eyes: Negative for injury, snw pain, redness, and discharge, ENT: Negative for injury, pain, and discharge, Neck: Negative for injury, pain, and swelling, Cardiovascular: Negative for chest pain, palpitations, and edema, Respiratory: Negative for shortness of breath, cough, wheezing, and pleuritic chest pain, Abdomen/GI: Negative for abdominal pain, nausea, vomiting, diarrhea, and constipation, Back: Negative for injury and pain, : Negative for injury, bleeding, discharge, and swelling, MS/Extremity: Negative for injury and deformity, Skin: Negative for injury, rash, and discoloration. 18:28 Neuro: Positive for seizure activity. Exam: 18:28 Constitutional: This is a well developed, well nourished patient who is awake, alert, snw and in no acute distress. Head/Face: Normocephalic, atraumatic. Eyes: Pupils equal round and reactive to light, extra-ocular motions intact. Lids and lashes normal. Conjunctiva and sclera are non-icteric and not injected. Cornea within normal limits. Periorbital areas with no swelling, redness, or edema. ENT: Nares patent. No nasal discharge, no septal abnormalities noted. Tympanic membranes are normal and external auditory canals are clear. Oropharynx with no redness, swelling, or masses, exudates, or evidence of obstruction, uvula midline. Mucous membranes moist. Neck: Trachea midline, no thyromegaly or masses palpated, and no cervical lymphadenopathy. Supple, full range of motion without nuchal rigidity, or vertebral point tenderness. No Meningismus. Chest/axilla: Normal chest wall appearance and motion. Nontender with no deformity. No lesions are appreciated. Cardiovascular: Regular rate and rhythm with a normal S1 and S2. No gallops, murmurs, or rubs. Normal PMI, no JVD. No pulse deficits. Respiratory: Lungs have equal breath sounds bilaterally, clear to auscultation and percussion. No rales, rhonchi or wheezes noted. No increased work of breathing, no retractions or nasal flaring. Abdomen/GI: Soft, non-tender, with normal bowel sounds. No distension or tympany. No guarding or rebound. No evidence of tenderness throughout. Back: No spinal tenderness. No costovertebral tenderness. Full range of motion. Skin: Warm, dry with normal turgor. Normal color with no rashes, no lesions, and no evidence of cellulitis. MS/ Extremity: Pulses equal, no cyanosis. Neurovascular intact. Full, normal range of motion. Neuro: Awake and alert, GCS 15, oriented to person, place, time, and situation. Cranial nerves II-XII grossly intact. Motor strength 5/5 in all extremities. Sensory grossly intact. Cerebellar exam normal. Normal gait. Psych: Awake, alert, with orientation to person, place and time. Behavior, mood, and affect are within normal limits. Vital Signs: 18:10 BP 105 / 78; Pulse 101; Resp 13; Temp 98.6(O); Pulse Ox 100% on R/A; Weight 45.81 kg tw2 (R); Height 5 ft. 4 in. (162.56 cm); Pain 9/10; 19:01 BP 107 / 67; Pulse 64; Resp 17; Pulse Ox 99% on R/A; tw2 20:08 BP 113 / 74; Pulse 80; Resp 16; Temp 98.4(TE); Pulse Ox 99% on R/A; Pain 0/10; ak1 18:10 Body Mass Index 17.34 (45.81 kg, 162.56 cm) tw2 [place] Coma Score: 18:09 Eye Response: spontaneous(4). Verbal Response: oriented(5). Motor Response: obeys tw2 commands(6). Total: 15. MDM: 18:15 Patient medically screened. snw 23:05 Data reviewed: vital signs, nurses notes. Data interpreted: Pulse oximetry: on room air snw is 99 %. Interpretation: normal. Counseling: I had a detailed discussion with the patient and/or guardian regarding: the historical points, exam findings, and any diagnostic results supporting the discharge/admit diagnosis, lab results, the need for outpatient follow up, to return to the emergency department if symptoms worsen or persist or if there are any questions or concerns that arise at home. Response to treatment: the patient's symptoms have markedly improved after treatment. Special discussion: Based on the history and exam findings, there is no indication for further emergent testing or inpatient evaluation. I discussed with the patient/guardian the need to see the primary care provider for further evaluation of the symptoms. 10/05 18:19 Order name: TSH; Complete Time: 19:15 snw 10/05 18:19 Order name: UDS snw 10/05 18:19 Order name: CBC with Diff; Complete Time: 19:01 snw 10/05 18:19 Order name: Chem 7; Complete Time: 19:15 snw 10/05 20:06 Order name: Urine Dipstick--Ancillary (enter results) eb 10/05 20:06 Order name: Urine --Ancillary (enter results) eb Administered Medications: 18:36 Drug: NS 0.9% 1000 ml Route: IV; Rate: 125 ml/hr; Site: left forearm; ae4 20:00 Follow up: Response: No adverse reaction; IV Status: Order to discontinue infusion; IV cc3 Intake: 125ml ; patient ordered for discharge home 19:25 Drug: Potassium Effervescent Tablet 50 mEq Route: PO; cc3 19:30 Follow up: Response: No adverse reaction cc3 Disposition: 10/05/18 19:27 Discharged to Home. Impression: Heat fatigue, transient, Hypokalemia. - Condition is Stable. - Discharge Instructions: Potassium Content of Foods, Seizure, Adult, Fatigue, Hypokalemia. - Medication Reconciliation Form, Thank You Letter, Antibiotic Education, Prescription Opioid Use form. - Follow up: Emergency Department; When: 2 - 3 days; Reason: Recheck today's complaints, Continuance of care, Re-evaluation by your physician. Follow up: Private Physician; When: 2 - 3 days; Reason: Recheck today's complaints, Continuance of care, Re-evaluation by your physician. Addendum: 10/08/2018 07:05 Co-signature as Attending Physician, Aguila Hall MD I agree with the assessment and k dr plan of care. Signatures: Dispatcher [employer] EDVA Aguila Hall MD MD [facility] Vandana Wells, WEBSITE PROGRAMMER-C WEBSITE PROGRAMMER-Csnw Jazmine Maher RN RN ak1 Tawnya Rivera RN RN tw2 Shari Velazco cc3 Unruly Patiño RN RN ae4 Corrections: (The following items were deleted from the chart) 10/05 20:10 19:27 10/05/2018 19:27 Discharged to Home. Impression: Heat fatigue, transient; ak1 Hypokalemia. Condition is Stable. Forms are Medication Reconciliation Form, Thank You Letter, Antibiotic Education, Prescription Opioid Use. Follow up: Emergency Department; When: 2 - 3 days; Reason: Recheck today's complaints, Continuance of care, Re-evaluation by your physician. Follow up: Private Physician; When: 2 - 3 days; Reason: Recheck today's complaints, Continuance of care, Re-evaluation by your physician. snw
[2018-10-05] MEDS ORDERED: POTASSIUM 25 MEQ EFFERV TAB ONE (19:37)
[2018-10-05 20:25] LABS: Barbiturates NEGATIVE (NEGATIVE); Benzodiazepines POSITIVE (NEGATIVE); Cocaine NEGATIVE (NEGATIVE); METHAMPHETAM NEGATIVE (NEGATIVE); Methadone NEGATIVE (NEGATIVE); Opiates NEGATIVE (NEGATIVE); Phencyclidine NEGATIVE (NEGATIVE); THC Cannibis NEGATIVE (NEGATIVE)
[2018-10-05 20:32] LABS: Urine Blood NEGATIVE (NEG); Urine Glucose NEGATIVE (NEG); Urine Protein NEGATIVE (NEG); Urine Specific Gravity 1.025 (1.005-1.030)
== END 2018-10-05 20:10 | disposition home or self-care (01) ==
LOC: ER 18:02
DX: E87.6 Hypokalemia (principal); G40.909 Epilepsy, unspecified, not intractable, without status epilepticus; E03.9 Hypothyroidism, unspecified; Z88.0 Allergy status to penicillin; Z88.1 Allergy status to other antibiotic agents; Z88.3 Allergy status to other anti-infective agents; Z88.5 Allergy status to narcotic agent
CPT/HCPCS: 36415; 80048; 80307; 81003; 81025; 84443; 85025; 96360; 99284; J7030

== ENCOUNTER 2019-11-05 15:48 | Emergency (ER) | payer SELFPAY ==
[2019-11-05 16:59] LABS: Absolute Lymphocytes (CBC) 2.7 K/uL (0.7-4.9); Basophils % 0.2 % (0-1.3); Hematocrit 35.4 % (36.0-45.0); Lymphocytes % 29.7 % (15.3-44.8); MPV 7.9 fL (7.6-11.3)
[2019-11-05 17:08] LABS: BUN Blood Urea Nitrogen 8 mg/dL (7-18); Bicarbonate 24 mmol/L (21-32); Glucose Level 99 mg/dL (74-106); Potassium 3.6 mmol/L (3.5-5.1); Sodium Level 138 mmol/L (136-145)
[2019-11-05 17:13] LABS: Barbiturates NEGATIVE (NEGATIVE); Benzodiazepines NEGATIVE (NEGATIVE); Cocaine NEGATIVE (NEGATIVE); METHAMPHETAM NEGATIVE (NEGATIVE); Methadone NEGATIVE (NEGATIVE); Opiates NEGATIVE (NEGATIVE); Phencyclidine NEGATIVE (NEGATIVE); THC Cannibis NEGATIVE (NEGATIVE)
[2019-11-05] MEDS ORDERED: ACETAMINOPHEN 500 MG TAB ONE (17:22)
--- NOTE | 2019-11-05 17:33 | ER ---
Nurse's Notes [facility] Name: Cornelia Phillips Age: 34 yrs Sex: Female : 1985 Arrival Date: 11/05/2019 Time: 15:54 Bed 8 Private MD: Diagnosis: Epilepsy and recurrent seizures Presentation: 11/04 15:57 Chief complaint: Patient states: seizure that lasted 2 minutes. Pt reports she is 8 ss weeks and states that the last time she was around 2 months she had seizures then too. Pt has not had any care other than an estimated due date by LMP. Coronavirus screen: Proceed with normal triage. Patient denies a cough. Patient denies shortness of breath or difficulty breathing. Patient denies measured and/or subjective temperature greater than 100.4F prior to today's visit. Patient denies travel on a cruise ship or to a country the [facility] currently lists as an affected area. Patient denies contact with known and/or suspected case of COVID-19. Ebola Screen: Patient denies exposure to infectious person. Patient denies travel to an Ebola-affected area in the 21 days before illness onset. Initial Sepsis Screen: Does the patient meet any 2 criteria? No. Patient's initial sepsis screen is negative. Does the patient have a suspected source of infection? No. Patient's initial sepsis screen is negative. Risk Assessment: Do you want to hurt yourself or someone else? Patient reports no desire to harm self or others. Onset of symptoms was November 05, 2019. Care prior to arrival: IV initiated. 20 GA, in the right antecubital area. 15:57 Method Of Arrival: EMS: [facility] ss 15:57 Acuity: LYLA 3 ss Triage Assessment: 16:08 General: Appears in no apparent distress. comfortable, well developed, Behavior is sv calm, cooperative, appropriate for age. Pain: Denies pain. Neuro: Level of Consciousness is awake, alert, obeys commands, Oriented to person, place, time, situation, Moves all extremities. Full function Speech is normal. Respiratory: Airway is patent Respiratory effort is even, unlabored, Respiratory pattern is regular, symmetrical. Derm: Skin is intact, Skin is pink, warm \T\ dry. Musculoskeletal: Range of motion: intact in all extremities. Historical: - Allergies: 16:01 Amoxicillin; ss 16:01 Augmentin; ss 16:01 Azithromycin; ss 16:01 Erythromycin; ss 16:01 PENICILLINS; ss 16:01 tramadol; ss - PMHx: 16:01 Hypothyroidism; Seizures; ss - PSHx: 16:01 ; ss - Immunization history:: Adult Immunizations up to date. - Social history:: Smoking status: Patient reports the use of cigarette tobacco products, denies chronic smoking, but will smoke occasionally. Screenin:09 Abuse screen: Denies threats or abuse. Denies injuries from another. Nutritional sv screening: No deficits noted. Tuberculosis screening: No symptoms or risk factors identified. Fall Risk None identified. Assessment: 17:26 Reassessment: Patient appears in no apparent distress at this time. No changes from sv previously documented assessment. Patient and/or family updated on plan of care and expected duration. Pain level reassessed. Patient is alert, oriented x 3, equal unlabored respirations, skin warm/dry/pink. Vital Signs: 15:57 BP 142 / 89; Pulse 100; Resp 14; Temp 98.3(TE); Pulse Ox 100% on R/A; Weight 45.36 kg; ss Height 4 ft. 11 in. (149.86 cm); Pain 8/10; 16:45 BP 105 / 70; Pulse 95; Resp 16; Pulse Ox 100% ; sv 15:57 Body Mass Index 20.20 (45.36 kg, 149.86 cm) Vinny Coma Score: 16:08 Eye Response: spontaneous(4). Verbal Response: oriented(5). Motor Response: obeys sv commands(6). Total: 15. ED Course: 15:54 Patient arrived in ED. em 15:57 Maintain EMS IV. Dressing intact. Good blood return noted. Site clean \T\ dry. Gauge \T\ sv site: 20G R AC. 16:01 Triage completed. ss 16:01 Arm band placed on right wrist. 16:03 Kathy Kumar, RN is Primary Nurse. sv 16:03 Patient has correct armband on for positive identification. Bed in low position. Call sv light in reach. Side rails up X2. Seizure precautions initiated. Pulse ox on. NIBP on. Head of bed elevated. 16:07 Dianne Pond FNP-C is [facility]. 16:07 Aguila Hall MD is Attending Physician. kb 16:45 Initial lab(s) drawn, by ED staff, sent to lab. sv 18:00 No provider procedures requiring assistance completed. IV discontinued, intact, sv bleeding controlled, No redness/swelling at site. Pressure dressing applied. Administered Medications: 17:25 Drug: Tylenol 1000 mg Route: PO; sv 18:00 Follow up: Response: No adverse reaction; No change in condition sv Outcome: 17:33 Discharge ordered by . kb 18:00 Discharged to home via wheelchair, with family. sv 18:00 Condition: stable 18:00 Discharge instructions given to patient, Instructed on discharge instructions, follow up and referral plans. Demonstrated understanding of instructions, follow-up care. 18:00 Patient left the ED. sv Signatures: Dianne Pond, RADIAL DRILL OPERATOR FOR PLASTIC-C RADIAL DRILL OPERATOR FOR PLASTIC-Kathy Donahue, RN RN sv Ck Shields, Jenelle Johnson RN, RN RN ss Corrections: (The following items were deleted from the chart) 18:16 18:16 Patient left the ED. sv sv
--- NOTE | 2019-11-05 17:34 | EDPHYS ---
Physician Documentation [facility] Name: Cornelia Phillips Age: 34 yrs Sex: Female : 1985 Arrival Date: 11/05/2019 Time: 15:54 Bed 8 Private MD: ED Physician Aguila Hall HPI: 11/04 17:06 This 34 yrs old Female presents to ER via EMS with complaints of Seizure. kb 17:06 The patient presents after having a single isolated seizure, that lasted 2 minute(s). kb Character of seizure(s): Loss of consciousness: the patient did not lose consciousness, Motor activity: generalized, "whole body tensed up", Incontinence: none, Apnea: the patient did not experience apnea, Circulation: the patient did not experience evidence of pulse disturbance. Seizure onset: just prior to arrival. Context: the seizure(s) was witnessed, by no one, occurred at home, occurred while the patient was lying down, Contributing factors: . Seizure Hx: has had seizures during and when under high stress. Associated injury: The patient did not suffer any apparent associated injury. Current symptoms: headache, that is mild. The patient has experienced similar episodes in the past. The patient has not recently seen a physician. Pt reports she didn't feel well so she went to lay down. Reports she had a seizure for 2 minutes. States her body tensed up and she had to gasp for air. Remembers the entire event. Now complaining of headache. States she had a seizure when she was approx this far along in her other pregnancies. . Historical: - Allergies: 16:01 Amoxicillin; ss 16:01 Augmentin; ss 16:01 Azithromycin; ss 16:01 Erythromycin; ss 16:01 PENICILLINS; ss 16:01 tramadol; ss - PMHx: 16:01 Hypothyroidism; Seizures; ss - PSHx: 16:01 ; ss - Immunization history:: Adult Immunizations up to date. - Social history:: Smoking status: Patient reports the use of cigarette tobacco products, denies chronic smoking, but will smoke occasionally. ROS: 17:05 Constitutional: Negative for fever, chills, and weight loss, Neck: Negative for injury, kb pain, and swelling, Cardiovascular: Negative for chest pain, palpitations, and edema, Respiratory: Negative for shortness of breath, cough, wheezing, and pleuritic chest pain, Abdomen/GI: Negative for abdominal pain, nausea, vomiting, diarrhea, and constipation, Back: Negative for injury and pain, MS/Extremity: Negative for injury and deformity, Skin: Negative for injury, rash, and discoloration. 17:05 Neuro: Positive for headache, seizure activity. Exam: 17:05 Constitutional: This is a well developed, well nourished patient who is awake, alert, kb and in no acute distress. Head/Face: Normocephalic, atraumatic. Eyes: Pupils equal round and reactive to light, extra-ocular motions intact. Lids and lashes normal. Conjunctiva and sclera are non-icteric and not injected. Cornea within normal limits. Periorbital areas with no swelling, redness, or edema. Chest/axilla: Normal chest wall appearance and motion. Nontender with no deformity. No lesions are appreciated. Cardiovascular: Regular rate and rhythm with a normal S1 and S2. No gallops, murmurs, or rubs. Normal PMI, no JVD. No pulse deficits. Respiratory: Lungs have equal breath sounds bilaterally, clear to auscultation and percussion. No rales, rhonchi or wheezes noted. No increased work of breathing, no retractions or nasal flaring. Abdomen/GI: Soft, non-tender, with normal bowel sounds. No distension or tympany. No guarding or rebound. No evidence of tenderness throughout. Skin: Warm, dry with normal turgor. Normal color with no rashes, no lesions, and no evidence of cellulitis. MS/ Extremity: Pulses equal, no cyanosis. Neurovascular intact. Full, normal range of motion. Neuro: Awake and alert, GCS 15, oriented to person, place, time, and situation. Cranial nerves II-XII grossly intact. Motor strength 5/5 in all extremities. Sensory grossly intact. Cerebellar exam normal. Normal gait. Vital Signs: 15:57 BP 142 / 89; Pulse 100; Resp 14; Temp 98.3(TE); Pulse Ox 100% on R/A; Weight 45.36 kg; ss Height 4 ft. 11 in. (149.86 cm); Pain 8/10; 16:45 BP 105 / 70; Pulse 95; Resp 16; Pulse Ox 100% ; sv 15:57 Body Mass Index 20.20 (45.36 kg, 149.86 cm) ss Vinny Coma Score: 16:08 Eye Response: spontaneous(4). Verbal Response: oriented(5). Motor Response: obeys sv commands(6). Total: 15. MDM: 16:07 Patient medically screened. kb 17:04 Data reviewed: vital signs, nurses notes. Data interpreted: Pulse oximetry: on room air kb is 100 %. Interpretation: normal. 17:32 Counseling: I had a detailed discussion with the patient and/or guardian regarding: the kb historical points, exam findings, and any diagnostic results supporting the discharge/admit diagnosis, lab results, the need for outpatient follow up, a neurologist, an OB/Gyne specialist, to return to the emergency department if symptoms worsen or persist or if there are any questions or concerns that arise at home. 11/04 16:11 Order name: CBC with Diff; Complete Time: 17:29 kb 11/04 16:11 Order name: Basic Metabolic Panel; Complete Time: 17:12 kb 11/04 16:33 Order name: UDS; Complete Time: 17:14 kb 11/04 17:19 Order name: Urine Dipstick--Ancillary (enter results) sc 11/04 17:19 Order name: Urine --Ancillary (enter results) sc 11/04 16:11 Order name: IV Start; Complete Time: 17:02 kb 11/04 16:11 Order name: Urine Dipstick-Ancillary (obtain specimen); Complete Time: 17:02 kb 11/04 16:11 Order name: Urine Test (obtain specimen); Complete Time: 17:02 kb Administered Medications: 17:25 Drug: Tylenol 1000 mg Route: PO; sv 18:00 Follow up: Response: No adverse reaction; No change in condition sv Disposition: 11/05 06:08 Co-signature as Attending Physician, Aguila Hall MD I agree with the assessment and kdr plan of care. Disposition: 11/05/19 17:33 Discharged to Home. Impression: Epilepsy and recurrent seizures. - Condition is Stable. - Discharge Instructions: First Trimester of , Gqaw-[id number], Seizure, Adult, [id number]. - Medication Reconciliation Form, Thank You Letter, Antibiotic Education, Prescription Opioid Use form. - Follow up: Emergency Department; When: As needed; Reason: Worsening of condition. Follow up: Private Physician; When: 2 - 3 days; Reason: Recheck today's complaints, Continuance of care, Re-evaluation by your physician. Signatures: Dispatcher [employer] [facility] Dianne Pond FNP-C FNP-Ckb Verde, Stephanie RN RN Aguila Talavera MD MD kdr Smirch, Shelby, RN RN ss Corrections: (The following items were deleted from the chart) 11/04 17:06 17:05 Constitutional: This is a well developed, well nourished patient who is awake, kb alert, and in no acute distress. Head/Face: Normocephalic, atraumatic. Chest/axilla: Normal chest wall appearance and motion. Nontender with no deformity. No lesions are appreciated. Cardiovascular: Regular rate and rhythm with a normal S1 and S2. No gallops, murmurs, or rubs. Normal PMI, no JVD. No pulse deficits. Respiratory: Lungs have equal breath sounds bilaterally, clear to auscultation and percussion. No rales, rhonchi or wheezes noted. No increased work of breathing, no retractions or nasal flaring. Abdomen/GI: Soft, non-tender, with normal bowel sounds. No distension or tympany. No guarding or rebound. No evidence of tenderness throughout. Skin: Warm, dry with normal turgor. Normal color with no rashes, no lesions, and no evidence of cellulitis. MS/ Extremity: Pulses equal, no cyanosis. Neurovascular intact. Full, normal range of motion. Neuro: Awake and alert, GCS 15, oriented to person, place, time, and situation. Cranial nerves II-XII grossly intact. Motor strength 5/5 in all extremities. Sensory grossly intact. Cerebellar exam normal. Normal gait. kb 17:38 17:30 Transvaginal Ob+US.RAD.BRZ ordered. [facility] EDKS 18:16 17:33 11/05/2019 17:33 Discharged to Home. Impression: Epilepsy and recurrent seizures. sv Condition is Stable. Forms are Medication Reconciliation Form, Thank You Letter, Antibiotic Education, Prescription Opioid Use. Follow up: Emergency Department; When: As needed; Reason: Worsening of condition. Follow up: Private Physician; When: 2 - 3 days; Reason: Recheck today's complaints, Continuance of care, Re-evaluation by your physician. kb
[2019-11-05 18:29] VITALS: TEMP 98.3; O2SAT 100
[2019-11-05 18:30] VITALS: BP 105/70
[2019-11-05 18:55] LABS: Urine Blood NEGATIVE (NEG); Urine Glucose NEGATIVE (NEG); Urine Protein NEGATIVE (NEG); Urine pH 7.5 (5.0-7.0)
== END 2019-11-05 18:16 | disposition home or self-care (01) ==
LOC: ER 15:48
DX: O99.351 Diseases of the nervous system complicating pregnancy, first trimester (principal); G40.802 Other epilepsy, not intractable, without status epilepticus; Z3A.08 8 weeks gestation of pregnancy; Z88.0 Allergy status to penicillin; Z88.1 Allergy status to other antibiotic agents; Z88.3 Allergy status to other anti-infective agents; Z88.5 Allergy status to narcotic agent
CPT/HCPCS: 36415; 80048; 80307; 81003; 81025; 85025; 99284

== ENCOUNTER 2020-09-26 14:35 | Emergency (ER) | payer OTHER, SELFPAY ==
--- OUTSIDE RECORDS SUMMARY | 2020-09-26 14:38 | XMS REPORT | Continuity of Care Document ---
:1985 Author Organization [facility] t Address [address] [place] [address] [place] [address] Care Team Providers Name Role Phone Unavailable Unavailable Unavailable Problems This patient has no known problems. Allergies, Adverse Reactions, Alerts This patient has no known allergies or adverse reactions. Medications This patient has no known medications. Procedures This patient has no known procedures. Results This patient has no known results.
[2020-09-26 15:13] LABS: Absolute Lymphocytes (CBC) 2.7 K/uL (0.7-4.9); Basophils % 0.4 % (0-1.3); Hematocrit 35.5 % (36.0-45.0); Lymphocytes % 45.5 % (15.3-44.8); RBC Red Blood Cell Count 3.99 M/uL (3.86-4.86)
[2020-09-26 15:19] LABS: Protime INR 1.03
[2020-09-26 15:26] LABS: ALT/SGPT 36 U/L (12-78); AST/SGOT 20 U/L (15-37); Albumin 3.8 g/dL (3.4-5.0); Alkaline Phosphatase 85 U/L (45-117); BUN Blood Urea Nitrogen 7 mg/dL (7-18); Bicarbonate 25 mmol/L (21-32); Bilirubin Direct 0.2 mg/dL (0-0.2); Glucose Level 92 mg/dL (74-106); Potassium 3.6 mmol/L (3.5-5.1); Protein, Total 6.7 g/dL (6.4-8.2); Sodium Level 141 mmol/L (136-145)
[2020-09-26] MEDS ORDERED: LEVETIRACETAM 500 MG/5 ML VIAL IV ONE (17:31)
[2020-09-26] MEDS ORDERED: NA CHLORIDE 0.9% 100 ML ONE (17:31)
[2020-09-26] MEDS ORDERED: KETOROLAC 30 MG/ML INJ ONE (17:40)
--- NOTE | 2020-09-26 17:41 | ER ---
Nurse's Notes [facility] Name: Cornelia Phillips Age: 35 yrs Sex: Female : 1985 Arrival Date: 09/26/2020 Time: 14:36 Bed 3 Private MD: Diagnosis: Epilepsy and recurrent seizures;Urinary tract infection, site not specified Presentation: 09/26 14:38 Chief complaint: EMS states: pt had a seizure lasting about 5 minutes. pt still seizing tr6 when EMS arrived. per EMS pt said "ouch" during IV insertion and did blink when an object came near her eye. 2 mg ativan given by EMS en route and seizing stopped. on arrival pt lying in bed comfortable, follows commands, but does not open her eyes. Coronavirus screen: At this time, unable to obtain information related to travel outside the [place] Ebola Screen: Unable to complete the Ebola screening because:. Initial Sepsis Screen: Does the patient meet any 2 criteria? No. Patient's initial sepsis screen is negative. Does the patient have a suspected source of infection? No. Patient's initial sepsis screen is negative. Risk Assessment: Do you want to hurt yourself or someone else? Unable to obtain. Onset of symptoms was September 26, 2020. 14:38 Method Of Arrival: EMS: [facility] tr6 14:38 Acuity: LYLA 3 tr6 Triage Assessment: 14:46 General: Appears in no apparent distress. Behavior is calm, appropriate for age. tr6 16:12 Pain: Denies pain. Neuro: No deficits noted. tr6 DIRECTOR OF PULMONARY UNIT: 14:43 LMP N/A - Hysterectomy tr6 Historical: - Allergies: 14:46 Amoxicillin; tr6 14:46 Augmentin; tr6 14:46 Azithromycin; tr6 14:46 Erythromycin; tr6 14:46 PENICILLINS; tr6 14:46 tramadol; tr6 - PMHx: 14:46 Hypothyroidism; Seizures; tr6 - PSHx: 14:46 Hysterectomy; tr6 - Immunization history:: Adult Immunizations up to date. - Social history:: Smoking status: unknown. Screenin:46 Abuse screen: Denies threats or abuse. Denies injuries from another. Nutritional tr6 screening: No deficits noted. Tuberculosis screening: No symptoms or risk factors identified. Fall Risk None identified. Assessment: 17:15 Reassessment: Patient appears in no apparent distress at this time. Patient and/or em family updated on plan of care and expected duration. Pain level reassessed. Patient is alert, oriented x 3, equal unlabored respirations, skin warm/dry/pink. Vital Signs: 14:38 BP 111 / 79; Pulse 90; Resp 18; Temp 97.8; Pulse Ox 100% on R/A; tr6 15:45 BP 92 / 61; Pulse 79; Resp 10; Pulse Ox 100% on R/A; tr6 17:15 BP 118 / 71; Pulse 97; Resp 14; Pulse Ox 98% on R/A; em [place] Coma Score: 15:59 Eye Response: to pain(2). Verbal Response: none(1). Motor Response: localizes pain(5). jr8 Total: 8. 16:12 Eye Response: spontaneous(4). Verbal Response: oriented(5). Motor Response: obeys tr6 commands(6). Total: 15. ED Course: 14:36 Patient arrived in ED. ds1 14:38 Lissa Conley RN is Primary Nurse. tr6 14:39 Angelo Black PA is PHCP. jr8 14:39 Aguila Hall MD is Attending Physician. jr8 14:43 Triage completed. tr6 14:47 No provider procedures requiring assistance completed. Maintain EMS IV. Dressing tr6 intact. Good blood return noted. Site clean \\T\\ dry. Gauge \\T\\ site: 18 Right AC. 14:48 Patient has correct armband on for positive identification. Fall risk band placed. Bed tr6 in low position. Call light in reach. Side rails up X2. cardiac monitor on. Pulse ox on. NIBP on. Door closed. Noise minimized. 14:48 Placed in gown. Seizure precautions initiated. tr6 16:12 Patient placed in an exam room. EKG completed in triage. Results shown to MD. tr6 18:13 IV discontinued, intact, bleeding controlled, No redness/swelling at site. Pressure em dressing applied. Administered Medications: 17:18 Drug: Keppra (levETIRAcetam) 1000 mg Route: IV; Rate: calculated rate; Site: right em antecubital; 17:37 Follow up: Response: No adverse reaction; IV Status: Completed infusion; IV Intake: tr6 100ml 17:41 Drug: TORadol - (ketorolac) 15 mg Route: IVP; Site: right antecubital; jr8 Point of Care Testing: Blood Glucose: 14:43 Blood Glucose: 98 mg/dL; tr6 Ranges: Intake: 17:37 IV: 100ml; Total: 100ml. tr6 Outcome: 17:40 Discharge ordered by . jr8 18:12 Discharged to home ambulatory, with family. em 18:12 Condition: stable 18:12 Discharge instructions given to patient, family, Instructed on discharge instructions, follow up and referral plans. medication usage, Demonstrated understanding of instructions, follow-up care, medications, Prescriptions given X 2. 18:13 Patient left the ED. em Signatures: Ck Shields, RN RN Mckenna Johnston1 Angelo Black PA PA jr8 Lissa Conley RN RN tr6
--- NOTE | 2020-09-26 17:41 | EDPHYS ---
Physician Documentation [facility] Name: Cornelia Phillips Age: 35 yrs Sex: Female : 1985 Arrival Date: 09/26/2020 Time: 14:36 Bed 3 Private MD: ED Physician Aguila Hall HPI: 09/26 15:59 This 35 yrs old Female presents to ER via EMS with complaints of Seizure. jr8 15:59 The patient presents after having a single isolated seizure, that lasted 5 minute(s). jr8 Character of seizure(s): Loss of consciousness: the patient experienced loss of consciousness, Motor activity: generalized, Incontinence: none, Apnea: the patient did not experience apnea, Circulation: the patient did not experience evidence of pulse disturbance. Seizure onset: just prior to arrival. Context: the seizure(s) was witnessed, by family, occurred at home. Seizure Hx: Original onset: longstanding, Cause: unknown. Associated injury: The patient did not suffer any apparent associated injury. The patient has experienced similar episodes in the past, several times. The patient has not recently seen a physician. KIER HAND: 14:43 LMP N/A - Hysterectomy tr6 Historical: - Allergies: 14:46 Amoxicillin; tr6 14:46 Augmentin; tr6 14:46 Azithromycin; tr6 14:46 Erythromycin; tr6 14:46 PENICILLINS; tr6 14:46 tramadol; tr6 - PMHx: 14:46 Hypothyroidism; Seizures; tr6 - PSHx: 14:46 Hysterectomy; tr6 - Immunization history:: Adult Immunizations up to date. - Social history:: Smoking status: unknown. ROS: 15:59 Unable to obtain ROS due to altered mental status. jr8 Exam: 15:59 Eyes: Pupils equal round and reactive to light, extra-ocular motions intact. Lids and jr8 lashes normal. Conjunctiva and sclera are non-icteric and not injected. Cornea within normal limits. Periorbital areas with no swelling, redness, or edema. Cardiovascular: Regular rate and rhythm with a normal S1 and S2. No gallops, murmurs, or rubs. Normal PMI, no JVD. No pulse deficits. Respiratory: Lungs have equal breath sounds bilaterally, clear to auscultation and percussion. No rales, rhonchi or wheezes noted. No increased work of breathing, no retractions or nasal flaring. Abdomen/GI: Soft with normal bowel sounds. No distension Skin: Warm, dry with normal turgor. Normal color with no rashes, no lesions, and no evidence of cellulitis. MS/ Extremity: Pulses equal, no cyanosis. Neurovascular intact. Full, normal range of motion. 15:59 Neuro: Orientation: Not oriented to person, place, time, situation, Mentation: responsive to pain, seizure activity, is not currently displayed, but the patient is post-ictal. Vital Signs: 14:38 BP 111 / 79; Pulse 90; Resp 18; Temp 97.8; Pulse Ox 100% on R/A; tr6 15:45 BP 92 / 61; Pulse 79; Resp 10; Pulse Ox 100% on R/A; tr6 17:15 BP 118 / 71; Pulse 97; Resp 14; Pulse Ox 98% on R/A; em Vinny Coma Score: 15:59 Eye Response: to pain(2). Verbal Response: none(1). Motor Response: localizes pain(5). jr8 Total: 8. 16:12 Eye Response: spontaneous(4). Verbal Response: oriented(5). Motor Response: obeys tr6 commands(6). Total: 15. MDM: 14:39 Patient medically screened. jr8 16:57 Data reviewed: vital signs, nurses notes, lab test result(s), EKG. Data interpreted: jr8 Pulse oximetry: on room air is 100 %. Interpretation: normal. Counseling: I had a detailed discussion with the patient and/or guardian regarding: the historical points, exam findings, and any diagnostic results supporting the discharge/admit diagnosis, lab results, the need for outpatient follow up, a neurologist, to return to the emergency department if symptoms worsen or persist or if there are any questions or concerns that arise at home. Response to treatment: the patient's symptoms have resolved after treatment. ED course: Patient now alert and oriented to person, place, time, event with GCS of 15. Stated that she has been out of her Keppra for over a week and needs a refill. No other acute lab or ECG findings noted . 09/26 14:39 Order name: Acetaminophen; Complete Time: 15:45 jr8 09/26 14:39 Order name: Basic Metabolic Panel; Complete Time: 15:45 09/26 14:39 Order name: CBC with Diff; Complete Time: 15:45 [facility] 09/26 14:39 Order name: ETOH Level; Complete Time: 15:45 09/26 14:39 Order name: Hepatic Function; Complete Time: 15:45 09/26 14:39 Order name: PT-INR; Complete Time: 15:45 [facility] 09/26 14:39 Order name: Ptt, Activated; Complete Time: 15:45 [facility] 09/26 14:39 Order name: Salicylate; Complete Time: 15:45 09/26 14:39 Order name: Urine Drug Screen [facility] 09/26 14:39 Order name: EKG; Complete Time: 14:40 [facility] 09/26 17:58 Order name: Urine Dipstick-Ancillary; Complete Time: 17:59 [facility] 09/26 18:09 Order name: Urine --Ancillary (enter results) [facility] 09/26 14:39 Order name: Urine Test (obtain specimen); Complete Time: 17:50 [facility] 09/26 14:39 Order name: EKG - Nurse/Tech; Complete Time: 14:49 [facility] 09/26 14:39 Order name: IV Saline Lock; Complete Time: 14:57 [facility] 09/26 14:39 Order name: Labs collected and sent; Complete Time: 14:57 09/26 14:39 Order name: Suicide Screening ([place]) [facility] 09/26 14:39 Order name: Urine Dipstick-Ancillary (obtain specimen); Complete Time: 18:09 [facility] Administered Medications: 17:18 Drug: Keppra (levETIRAcetam) 1000 mg Route: IV; Rate: calculated rate; Site: right em antecubital; 17:37 Follow up: Response: No adverse reaction; IV Status: Completed infusion; IV Intake: tr6 100ml 17:41 Drug: TORadol - (ketorolac) 15 mg Route: IVP; Site: right antecubital; jr8 Point of Care Testing: Blood Glucose: 14:43 Blood Glucose: 98 mg/dL; tr6 Ranges: Critical Glucose Levels:Adult <50 mg/dl or >400 mg/dl <40 mg/dl or >180 mg/dl Disposition: 09/26/20 17:40 Discharged to Home. Impression: Epilepsy and recurrent seizures, Urinary tract infection, site not specified. - Condition is Stable. - Discharge Instructions: Seizure, Adult. - Prescriptions for Keppra 500 mg Oral Tablet - take 1 tablet by ORAL route every 12 hours; 20 tablet. Macrobid 100 mg Oral Capsule - take 1 capsule by ORAL route every 12 hours for 7 days; 14 capsule. - Work release form, Medication Reconciliation Form, Thank You Letter, Antibiotic Education, Prescription Opioid Use form. - Follow up: Private Physician; When: 5 - 6 days; Reason: Recheck today's complaints, Continuance of care, Re-evaluation by your physician. - Problem is new. - Symptoms have improved. Addendum: 09/28/2020 14:53 Co-signature as Attending Physician, Aguila Hall MD I agree with the assessment and k dr plan of care. Signatures: Dispatcher [employer] EDMS Aguila Hall MD MD [facility] Ck Shields RN RN em Angelo Black PA PA jr8 Lissa Conley RN RN tr6 Corrections: (The following items were deleted from the chart) 09/26 17:58 17:40 09/26/2020 17:40 Discharged to Home. Impression: Epilepsy and recurrent seizures. jr8 Condition is Stable. Forms are Medication Reconciliation Form, Thank You Letter, Antibiotic Education, Prescription Opioid Use. Follow up: Private Physician; When: 5 - 6 days; Reason: Recheck today's complaints, Continuance of care, Re-evaluation by your physician. Problem is new. Symptoms have improved. jr8 18:13 17:58 09/26/2020 17:40 Discharged to Home. Impression: Epilepsy and recurrent seizures; em Urinary tract infection, site not specified. Condition is Stable. Discharge Instructions: Seizure, Adult. Prescriptions for Keppra 500 mg Oral Tablet - take 1 tablet by ORAL route every 12 hours; 20 tablet. and Forms are Medication Reconciliation Form, Thank You Letter, Antibiotic Education, Prescription Opioid Use. Follow up: Private Physician; When: 5 - 6 days; Reason: Recheck today's complaints, Continuance of care, Re-evaluation by your physician. Problem is new. Symptoms have improved. jr8
[2020-09-26 17:59] LABS: Urine Blood 1+ (Negative); Urine Glucose Negative (Negative); Urine Protein Negative (Negative)
[2020-09-26 18:15] LABS: Barbiturates NEGATIVE (NEGATIVE); Benzodiazepines NEGATIVE (NEGATIVE); Cocaine NEGATIVE (NEGATIVE); METHAMPHETAM NEGATIVE (NEGATIVE); Methadone NEGATIVE (NEGATIVE); Opiates NEGATIVE (NEGATIVE); Phencyclidine NEGATIVE (NEGATIVE); THC Cannibis NEGATIVE (NEGATIVE)
[2020-09-26 18:28] VITALS: TEMP 97.8
[2020-09-26 18:30] VITALS: BP 118/71; O2SAT 98
== END 2020-09-26 18:13 | disposition home or self-care (01) ==
LOC: ER 14:35
DX: G40.909 Epilepsy, unspecified, not intractable, without status epilepticus (principal); N39.0 Urinary tract infection, site not specified; E03.9 Hypothyroidism, unspecified
CPT/HCPCS: 96365; 93005; 85025; 80048; 36415; 80320; 80329 ×2; 81025; 85610; 80076; 80307 ×8; 85730; 81003; 96375; 99284; J1953

== ENCOUNTER 2020-09-29 21:58 | Emergency (ER) | payer OTHER ==
--- OUTSIDE RECORDS SUMMARY | 2020-09-29 22:00 | XMS REPORT | Continuity of Care Document ---
:1985 Author Organization [facility] t Address [address] [place] [address] [place] [id number] Care Team Providers Name Role Phone Unavailable Unavailable Unavailable Problems This patient has no known problems. Allergies, Adverse Reactions, Alerts This patient has no known allergies or adverse reactions. Medications This patient has no known medications. Procedures This patient has no known procedures. Results This patient has no known results.
[2020-09-29 22:36] LABS: Absolute Lymphocytes (CBC) 3.6 K/uL (0.7-4.9); Basophils % 0.4 % (0-1.3); Hematocrit 35.6 % (36.0-45.0); Lymphocytes % 47.1 % (15.3-44.8); RBC Red Blood Cell Count 3.99 M/uL (3.86-4.86)
[2020-09-29] MEDS ORDERED: NA CHLORIDE 0.9% 500 ML ONE (22:43)
[2020-09-29] MEDS ORDERED: LORazepam 2 MG/ML VIAL ONE (22:43)
[2020-09-29 22:58] LABS: Protime INR 0.97
[2020-09-29 23:23] LABS: ALT/SGPT 33 U/L (12-78); AST/SGOT 19 U/L (15-37); Albumin 4.1 g/dL (3.4-5.0); Alkaline Phosphatase 91 U/L (45-117); BUN Blood Urea Nitrogen 8 mg/dL (7-18); Bicarbonate 27 mmol/L (21-32); Bilirubin Direct 0.1 mg/dL (0-0.2); Bilirubin Total 0.5 mg/dL (0.2-1.0); Glucose Level 105 mg/dL (74-106); Potassium 3.8 mmol/L (3.5-5.1); Protein, Total 7.5 g/dL (6.4-8.2); Sodium Level 144 mmol/L (136-145)
--- NOTE | 2020-09-30 01:31 | EDPHYS ---
Physician Documentation [facility] Name: Cornelia Phillips Age: 35 yrs Sex: Female : 1985 Arrival Date: 09/29/2020 Time: 22:01 Bed 14 Private MD: ED Physician Agnieszka Black HPI: 09/29 22:20 This 35 yrs old Female presents to ER via EMS with complaints of Anxiety. cp 22:20 Patient brought to ED by EMS after being called to patient's job for reported anxiety. cp Patient unsure of events, but reports while at work started having headache, tunnel vision and next thing awoke in arms of boss. Patient reports history of seizures since age 15. Currently takes Keppra. 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 - Social history:: Smoking status: unknown. ROS: 22:25 Constitutional: Positive for generalized pain, Negative for fever. cp 22:25 Neuro: Negative for actively seizing. cp 22:25 All other systems are negative. Exam: 22:35 Constitutional: The patient appears in no acute distress, alert, awake, cp non-diaphoretic, non-toxic, well developed, well nourished. 22:35 Head/Face: Normocephalic, atraumatic. cp 22:35 Eyes: Pupils: equal, round, and reactive to light and accomodation, Conjunctiva: normal, no exudate, no injection, Sclera: no appreciated abnormality, Lids and lashes: appear normal, bilaterally. 22:35 ENT: External ear(s): are unremarkable, Nose: is normal, Mouth: Lips: moist, Oral mucosa: moist, Posterior pharynx: Airway: no evidence of obstruction, patent. 22:35 Neck: ROM/movement: is normal, is supple, no meningismus, no nuchal rigidity. 22:35 Chest/axilla: Inspection: normal, Palpation: is normal, no crepitus, no tenderness. 22:35 Cardiovascular: Rate: normal, Rhythm: regular. 22:35 Respiratory: the patient does not display signs of respiratory distress, Respirations: normal, no use of accessory muscles, no retractions, labored breathing, is not present, Breath sounds: are clear throughout, no decreased breath sounds. 22:35 Abdomen/GI: Inspection: abdomen appears normal, Palpation: abdomen is soft and non-tender, in all quadrants. 22:35 Neuro: Orientation: to person, Mentation: confused, Motor: Hypertonic in right arm, left arm, right leg and left leg. 22:37 ECG was reviewed by the Attending Physician. cp Vital Signs: 22:05 BP 134 / 98; Pulse 93; Resp 18; Temp 97.3; Pulse Ox 98% on R/A; iw 22:38 BP 136 / 90; Pulse 71; Resp 16; Pulse Ox 100% ; Weight 45.36 kg; rr5 23:31 BP 120 / 85; Pulse 75; Resp 19; Pulse Ox 98% ; rr5 09/30 01:04 BP 104 / 68; Pulse 63; Resp 14; Pulse Ox 100% on R/A; rr5 MDM: 09/29 22:25 Patient medically screened. cp 22:30 Differential diagnosis: drug withdrawal. depression, psychosis secondary to cp non-compliance, seizure, anxiety. 09/30 01:30 Data reviewed: vital signs, nurses notes, lab test result(s), EKG. 01:30 Test interpretation: by ED physician or midlevel provider: ECG. ED course: VSS. Patient cp resting comfortably in exam room. Responsive appropriately to questioning. No seizure activity observed in ED. Will discharge to home for continued monitoring. 09/29 22:14 Order name: Acetaminophen; Complete Time: 00:19 cp 09/29 22:14 Order name: Basic Metabolic Panel; Complete Time: 00:19 cp 09/30 00:19 Interpretation: Normal except: CL 110. cp 09/29 22:14 Order name: CBC with Diff; Complete Time: 23:22 cp 09/30 00:44 Interpretation: Normal except: HCT 35.6; LYM% 47.1. cp 09/29 22:14 Order name: ETOH Level; Complete Time: 00:19 cp 09/29 22:14 Order name: Hepatic Function; Complete Time: 00:19 cp 09/29 22:14 Order name: PT-INR; Complete Time: 23:22 cp 09/29 22:14 Order name: Ptt, Activated; Complete Time: 23:22 cp 09/29 22:14 Order name: Salicylate; Complete Time: 00:19 cp 09/29 22:14 Order name: EKG; Complete Time: 22:15 cp 09/29 22:14 Order name: EKG - Nurse/Tech; Complete Time: :38 cp 09/29 22:14 Order name: IV Saline Lock; Complete Time: : cp 09/29 22:14 Order name: Labs collected and sent; Complete Time: : cp EC/25 22:37 Rate is 71 beats/min. Rhythm is regular. CT interval is normal. QRS interval is normal. cp QT interval is normal. Interpreted by me. Reviewed by me. Administered Medications: 22: Drug: NS 0.9% 500 ml Route: IV; Rate: bolus; Site: left antecubital; rr5 23:36 Follow up: Response: No adverse reaction; IV Status: Completed infusion; IV Intake: rr5 500ml :28 Drug: Ativan (LORazepam) 0.5 mg Route: IVP; Site: left antecubital; rr5 23:36 Follow up: Response: No adverse reaction; RASS: Alert and Calm (0) rr5 Disposition: 09/30 01:50 Chart complete. cp Disposition: 09/30/20 01:30 Discharged to Home. Impression: Epilepsy and recurrent seizures. - Condition is Stable. - Discharge Instructions: Seizure, Adult. - Medication Reconciliation Form, Thank You Letter, Antibiotic Education, Prescription Opioid Use form. - Follow up: Eddy Boyle MD; When: 1 - 2 days; Reason: Recheck today's complaints. - Problem is an ongoing problem. - Symptoms have improved. Signatures: Dispatcher [employer] EDYumiko Loredo RN Prem Friend PA PA cp Antunez, Elena, RN RN ea Roque, Raymond RN RN rr5 Corrections: (The following items were deleted from the chart) 00:44 09/29 23:22 Normal except: HCT 35.6. cp cp 09/30 01:47 01:30 09/30/2020 01:30 Discharged to Home. Impression: Epilepsy and recurrent seizures. ea Condition is Stable. Forms are Medication Reconciliation Form, Thank You Letter, Antibiotic Education, Prescription Opioid Use. Follow up: Eddy Boyle; When: 1 - 2 days; Reason: Recheck today's complaints. Problem is an ongoing problem. Symptoms have improved. cp 15:25 05 22:25 Neuro: Negative for altered mental status, seizure activity, cp cp
--- NOTE | 2020-09-30 01:31 | ER ---
Nurse's Notes [facility] Name: Cornelia Phillips Age: 35 yrs Sex: Female : 1985 Arrival Date: 09/29/2020 Time: 22:01 Bed 14 Private MD: Diagnosis: Epilepsy and recurrent seizures Presentation: 09/29 22:05 Chief complaint: EMS states: Pt had what was reported as seizure by bystanders, upon iw arrival pt with claudication, anxiety, hyperventilation. Hx of seizures, recently started on keppra, pt A/Ox 4 VSS. Coronavirus screen: Client denies travel out of the [place] in the last 14 days. At this time, the client does not indicate any symptoms associated with coronavirus-19. Ebola Screen: No symptoms or risks identified at this time. Initial Sepsis Screen: Does the patient meet any 2 criteria? No. Patient's initial sepsis screen is negative. Does the patient have a suspected source of infection? No. Patient's initial sepsis screen is negative. Risk Assessment: Do you want to hurt yourself or someone else? Patient reports no desire to harm self or others. Onset of symptoms was September 29, 2020. 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 - Social history:: Smoking status: unknown. Screenin:31 Abuse screen: Denies threats or abuse. Denies injuries from another. Nutritional rr5 screening: No deficits noted. Tuberculosis screening: No symptoms or risk factors identified. Fall Risk IV access (20 points). Total Sanchez Fall Scale indicates No Risk (0-24 pts). Assessment: 22:10 General: Appears in no apparent distress. uncomfortable, Behavior is anxious, crying. rr5 22:10 Pain: Denies pain. Neuro: Level of Consciousness is awake, alert, obeys commands, rr5 Oriented to person, place, time. Cardiovascular: Capillary refill < 3 seconds Patient's skin is warm and dry. Respiratory: Airway is patent Respiratory effort is even, unlabored, Respiratory pattern is regular, symmetrical. Derm: Skin is intact, is healthy with good turgor, Skin temperature is warm. Musculoskeletal: Capillary refill < 3 seconds. 23:30 Reassessment: Patient appears in no apparent distress at this time. Patient is alert, rr5 oriented x 3, equal unlabored respirations, skin warm/dry/pink. Patient states feeling better. Patient states symptoms have improved. 09/30 01:46 Reassessment: Patient and/or family updated on plan of care and expected duration. Pain ea level reassessed. Patient is alert, oriented x 3, equal unlabored respirations, skin warm/dry/pink. Discharge instruction given to patient verbalized the understanding of instruction. Pt left ED ambulatory tolerating well. Patient states feeling better. Patient states symptoms have improved. Vital Signs: 09/29 22:05 BP 134 / 98; Pulse 93; Resp 18; Temp 97.3; Pulse Ox 98% on R/A; iw 22:38 BP 136 / 90; Pulse 71; Resp 16; Pulse Ox 100% ; Weight 45.36 kg; rr5 23:31 BP 120 / 85; Pulse 75; Resp 19; Pulse Ox 98% ; rr5 09/30 01:04 BP 104 / 68; Pulse 63; Resp 14; Pulse Ox 100% on R/A; rr5 ED Course: 09/29 22:01 Patient arrived in ED. mw2 22:06 Prem Thompson PA is PHCP. cp 22:06 Agnieszka Black MD is Attending Physician. cp 22:06 Triage completed. iw 22:07 Arm band placed on left wrist. iw 22:20 Patient has correct armband on for positive identification. Bed in low position. Call rr5 light in reach. Side rails up X2. Seizure precautions initiated. shelter monitor on. Pulse ox on. NIBP on. 22:22 Jaskaran Bowling RN is Primary Nurse. rr5 22:28 Initial lab(s) drawn, by me, sent to lab. Inserted saline lock: 22 gauge in left iw antecubital area, using aseptic technique. Blood collected. 09/30 01:28 Eddy Boyle MD is Referral Physician. cp 01:46 No provider procedures requiring assistance completed. IV discontinued, intact, ea bleeding controlled, No redness/swelling at site. Pressure dressing applied. Administered Medications: 09/29 22:28 Drug: NS 0.9% 500 ml Route: IV; Rate: bolus; Site: left antecubital; rr5 23:36 Follow up: Response: No adverse reaction; IV Status: Completed infusion; IV Intake: rr5 500ml 22:28 Drug: Ativan (LORazepam) 0.5 mg Route: IVP; Site: left antecubital; rr5 23:36 Follow up: Response: No adverse reaction; RASS: Alert and Calm (0) rr5 Intake: 23:36 IV: 500ml; Total: 500ml. rr5 Outcome: 09/30 01:30 Discharge ordered by MD. cp 01:46 Discharged to home ambulatory, with family. ea 01:46 Condition: stable 01:46 Discharge instructions given to patient, Instructed on discharge instructions, follow up and referral plans. Demonstrated understanding of instructions, follow-up care. 01:47 Patient left the ED. ea Signatures: Yumiko Sneed, RN RN Prem Vizcaino PA PA Magda Light, RN RN Roma Caballero 2 Jaskaran Bowling, RN RN rr5
[2020-09-30 02:28] VITALS: TEMP 97.3
[2020-09-30 02:46] VITALS: BP 104/68; O2SAT 100
--- NOTE | 2020-09-30 11:58 | EKG ---
Test Date: 2020-09-29 Test Time: 22:34:57 Decorator Hand: RR MEASUREMENT RESULTS: Intervals: Rate: 71 TN: 134 QRSD: 66 QT: 366 QTc: 397 [place]: P: 65 TN: 134 QRS: 84 T: 70 INTERPRETIVE STATEMENTS: Normal sinus rhythm with sinus arrhythmia Normal ECG Compared to ECG 09/26/2020 14:37:44 ST (T wave) deviation no longer present Electronically Signed On 09-30-20 11:56:53 CDT by Janak Escamilla
== END 2020-09-30 01:47 | disposition home or self-care (01) ==
LOC: ER 21:58
DX: G40.802 Other epilepsy, not intractable, without status epilepticus (principal); Z88.0 Allergy status to penicillin; Z88.1 Allergy status to other antibiotic agents; Z88.3 Allergy status to other anti-infective agents; Z88.5 Allergy status to narcotic agent
CPT/HCPCS: 93005; 85025; 80048; 36415; 80320; 80329 ×2; 85610; 80076; 85730; J7040; 96361; 96374; 99284

== ENCOUNTER 2021-02-17 17:09 | Emergency (ER) | payer OTHER ==
[2021-02-17 17:50] LABS: Absolute Lymphocytes (CBC) 2.7 K/uL (0.7-4.9); Basophils % 0.5 % (0-1.3); RBC Red Blood Cell Count 3.98 M/uL (3.86-4.86)
[2021-02-17] MEDS ORDERED: LEVETIRACETAM 500 MG/5 ML VIAL IV ONE (17:52)
[2021-02-17 17:54] LABS: Urine Blood Negative (Negative); Urine Glucose Negative (Negative); Urine Protein Negative (Negative); Urine Specific Gravity 1.015 (1.005-1.030); Urine pH 7.5 (5.0-7.0)
[2021-02-17] MEDS ORDERED: NA CHLORIDE 0.9% 100 ML ONE (17:54)
[2021-02-17 18:10] LABS: BUN Blood Urea Nitrogen 6 mg/dL (7-18); Bicarbonate 25 mmol/L (21-32); Glucose Level 95 mg/dL (74-106); Magnesium 2.3 mg/dL (1.8-2.4); Potassium 3.7 mmol/L (3.5-5.1); Sodium Level 142 mmol/L (136-145)
--- NOTE | 2021-02-17 18:22 | EDPHYS ---
Physician Documentation [facility] Name: Cornelia Phillips Age: 36 yrs Sex: Female : 1985 Arrival Date: 02/17/2021 Time: 17:10 Bed 17 Private MD: ED Physician Aguila Hall HPI: 02/17 17:26 This 36 yrs old Female presents to ER via Unassigned with complaints of jr8 Seizure. 17:26 This is a 36-year-old female patient that presented to the emergency room via EMS after jr8 sustaining a seizure. Patient stated that she had been dealing with chronic migraines and has had one recently that was more persistent. Sent her into having a seizure. Patient alert and oriented x4 with no focal deficits at this time. Patient stated that she is overall feeling better including her head pain. Patient stated that she has been off of her Keppra for the last 2 weeks accidentally. Denies any other complaints at this time.. 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 - Social history:: Smoking status: . ROS: 17:26 Eyes: Negative for injury, pain, redness, and discharge, ENT: Negative for injury, jr8 pain, and discharge, Neck: Negative for injury, pain, and swelling, Cardiovascular: Negative for chest pain, palpitations, and edema, Respiratory: Negative for shortness of breath, cough, wheezing, and pleuritic chest pain, Abdomen/GI: Negative for abdominal pain, nausea, vomiting, diarrhea, and constipation, Back: Negative for injury and pain, MS/Extremity: Negative for injury and deformity, Skin: Negative for injury, rash, and discoloration. 17:26 Neuro: Positive for headache, seizure activity. Exam: 17:26 Constitutional: This is a well developed, well nourished patient who is awake, alert, jr8 and in no acute distress. ENT: Nares patent. No nasal discharge, no septal abnormalities noted. Tympanic membranes are normal and external auditory canals are clear. Oropharynx with no redness, swelling, or masses, exudates, or evidence of obstruction, uvula midline. Mucous membranes moist. Neck: Trachea midline, no thyromegaly or masses palpated, and no cervical lymphadenopathy. Supple, full range of motion without nuchal rigidity, or vertebral point tenderness. No Meningismus. Cardiovascular: Regular rate and rhythm with a normal S1 and S2. No gallops, murmurs, or rubs. Normal PMI, no JVD. No pulse deficits. Respiratory: Lungs have equal breath sounds bilaterally, clear to auscultation and percussion. No rales, rhonchi or wheezes noted. No increased work of breathing, no retractions or nasal flaring. Abdomen/GI: Soft, non-tender, with normal bowel sounds. No distension or tympany. No guarding or rebound. No evidence of tenderness throughout. Back: No spinal tenderness. No costovertebral tenderness. Full range of motion. Skin: Warm, dry with normal turgor. Normal color with no rashes, no lesions, and no evidence of cellulitis. MS/ Extremity: Pulses equal, no cyanosis. Neurovascular intact. Full, normal range of motion. Neuro: Awake and alert, GCS 15, oriented to person, place, time, and situation. Cranial nerves II-XII grossly intact. Motor strength 5/5 in all extremities. Sensory grossly intact. Cerebellar exam normal. Normal gait. Vital Signs: 17:11 Weight 42.64 kg; Height 4 ft. 11 in. (149.86 cm); Pain 8/10; tw2 17:11 Temp 97.9(TE); tw2 19:37 BP 108 / 64; Pulse 76; Resp 14 S; Temp 98.3(O); Pulse Ox 99% on R/A; Pain 0/10; sj1 17:11 Body Mass Index 18.99 (42.64 kg, 149.86 cm) tw2 Grant Coma Score: 17:11 Eye Response: spontaneous(4). Verbal Response: oriented(5). Motor Response: obeys tw2 commands(6). Total: 15. MDM: 17:20 Patient medically screened. jr8 18:20 Data reviewed: vital signs, nurses notes, lab test result(s), and as a result, I will jr8 discharge patient. Data interpreted: Pulse oximetry: on room air is 100 %. Interpretation: normal. Counseling: I had a detailed discussion with the patient and/or guardian regarding: the historical points, exam findings, and any diagnostic results supporting the discharge/admit diagnosis, lab results, the need for outpatient follow up, a family practitioner, to return to the emergency department if symptoms worsen or persist or if there are any questions or concerns that arise at home. Response to treatment: the patient's symptoms have resolved after treatment. ED course: Patient remains hemodynamically stable and afebrile. Patient overall feeling much better. No active seizures while she has been here. Patient has received Keppra infusion and will prescribe her more medication. Knows to return if she were to worsening point time.. 02/17 17:25 Order name: CBC with Diff; Complete Time: 17:58 8 02/17 17:25 Order name: Basic Metabolic Panel; Complete Time: 18:20 8 02/17 17:25 Order name: Magnesium; Complete Time: 18:20 8 02/17 17:25 Order name: Urine Microscopic Only; Complete Time: 18:40 8 02/17 17:54 Order name: Urine Dipstick-Ancillary; Complete Time: 17:58 EDMS 02/17 18:19 Order name: Urine --Ancillary (enter results); Complete Time: 18:40 bd 02/17 17:25 Order name: Urine Dipstick-Ancillary (obtain specimen); Complete Time: 17:55 8 02/17 17:25 Order name: Urine Test (obtain specimen); Complete Time: 17:55 8 02/17 17:25 Order name: IV; Complete Time: 17:55 jr8 Administered Medications: 17:55 Drug: Keppra (levETIRAcetam) 1000 mg Route: IV; Rate: calculated rate; Site: left ch5 antecubital; Disposition: 23:47 Co-signature as Attending Physician, Aguila Hall MD I agree with the assessment and kdr plan of care. Disposition Summary: 02/17/21 18:21 Discharge Ordered Location: Home jr8 Problem: new jr8 Symptoms: have improved jr8 Condition: Stable jr8 Diagnosis - Epileptic seizures related to external causes jr8 Followup: jr8 - With: Private Physician - When: 2 - 3 days - Reason: Recheck today's complaints, Continuance of care, Re-evaluation by your physician Discharge Instructions: - Discharge Summary Sheet jr8 - Seizure, Adult jr8 Forms: - Medication Reconciliation Form jr8 - Thank You Letter jr8 - Antibiotic Education jr8 - Prescription Opioid Use jr8 Prescriptions: - Keppra 750 mg Oral Tablet - take 1 tablet by ORAL route every 12 hours; 40 tablet; Refills: 0, Product jr8 Selection Permitted Signatures: Dispatcher [employer] EDPA Aguila Hall MD MD kdr Roszak, Josh, PA PA jr8 Tawnya Rivera RN RN tw2 Albert Beaulieu RN RN ch5
--- NOTE | 2021-02-17 18:22 | ER ---
Nurse's Notes [facility] Name: Cornelia Phillips Age: 36 yrs Sex: Female : 1985 Arrival Date: 02/17/2021 Time: 17:10 Bed 17 Private MD: Diagnosis: Epileptic seizures related to external causes Presentation: 02/17 17:11 Chief complaint: EMS states: pts children called EMS reporting seizure like activity. tw2 pt was having tonic clonic seizure like activity when we arrived. seized for about 45 seconds before we got the IV and gave 2 mg Ativan. Seizures stopped shortly thereafter. was postictal and is still slightly at this time but can answer appropriately now hx of epilepsy and normally takes Keppra but has been without it for 6 weeks d/t financial strain. vs stable. 02 was above 95% the entire time and CO2 is now at 40. 17:11 Coronavirus screen: At this time, the client does not indicate any symptoms associated tw2 with coronavirus-19. Ebola Screen: Patient denies exposure to infectious person. Patient denies travel to an Ebola-affected area in the 21 days before illness onset. Initial Sepsis Screen: Does the patient meet any 2 criteria? No. Patient's initial sepsis screen is negative. Does the patient have a suspected source of infection? No. Patient's initial sepsis screen is negative. Risk Assessment: Do you want to hurt yourself or someone else? Patient reports no desire to harm self or others. Onset of symptoms was February 17, 2021. 17:11 Method Of Arrival: EMS: [facility] tw2 17:11 Acuity: LYLA 3 tw2 Triage Assessment: 17:11 General: Appears in no apparent distress. slender, Behavior is calm, cooperative, tw2 appropriate for age. Pain: Complains of pain in "headache". Neuro: Level of Consciousness is awake, obeys commands, Oriented to person, place, situation, Reports headache. 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 - Social history:: Smoking status: . Screenin:32 Abuse screen: Denies threats or abuse. Nutritional screening: No deficits noted. tw2 Tuberculosis screening: No symptoms or risk factors identified. Fall Risk None identified. Assessment: 17:55 Reassessment: Pt placed in seizure precautions with side rails padded. Medicated as ch5 ordered. . Vital Signs: 17:11 Weight 42.64 kg; Height 4 ft. 11 in. (149.86 cm); Pain 8/10; tw2 17:11 Temp 97.9(TE); tw2 19:37 BP 108 / 64; Pulse 76; Resp 14 S; Temp 98.3(O); Pulse Ox 99% on R/A; Pain 0/10; sj1 17:11 Body Mass Index 18.99 (42.64 kg, 149.86 cm) tw2 Vinny Coma Score: 17:11 Eye Response: spontaneous(4). Verbal Response: oriented(5). Motor Response: obeys tw2 commands(6). Total: 15. ED Course: 17:10 Patient arrived in ED. tw2 17:11 Albert Beaulieu RN is Primary Nurse. 5 17:11 Arm band placed on. tw2 17:17 Angelo Black PA is PHCP. jr8 17:17 Aguila Hall MD is Attending Physician. jr8 17:32 Triage completed. tw2 17:55 Patient has correct armband on for positive identification. Bed in low position. Call ch5 light in reach. Side rails up X2. 17:55 No provider procedures requiring assistance completed. Inserted saline lock: 20 gauge ch5 in left antecubital area, using aseptic technique. 19:37 IV discontinued, intact, bleeding controlled, No redness/swelling at site. sj1 19:38 Seizure precautions initiated. sj1 Administered Medications: 17:55 Drug: Keppra (levETIRAcetam) 1000 mg Route: IV; Rate: calculated rate; Site: left ch5 antecubital; Outcome: 18:21 Discharge ordered by . jr8 19:37 Discharged to home ambulatory. sj1 19:37 Condition: stable 19:37 Discharge instructions given to patient, Instructed on discharge instructions, follow up and referral plans. medication usage, Demonstrated understanding of instructions, follow-up care, medications, Prescriptions given X 1. 19:39 Patient left the ED. sj1 Signatures: Angelo Black PA PA jr8 Tawnya Rivera RN RN tw2 Albert Beaulieu, RN RN ch5 Bhumi Meza RN RN sj1 Corrections: (The following items were deleted from the chart) 17:33 17:33 LMP N/A - tw2 tw2
[2021-02-17 18:37] LABS: Urine Bacteria <20 /HPF (<20); Urine RBC <5 /HPF (NONE SEEN)
[2021-02-17 18:38] LABS: Urine Specific Gravity/Preg 1.015 (1.005-1.030)
[2021-02-17 20:03] VITALS: BP 108/64; TEMP 98.3; O2SAT 99
== END 2021-02-17 19:39 | disposition home or self-care (01) ==
LOC: ER 17:09
DX: G40.509 Epileptic seizures related to external causes, not intractable, without status epilepticus (principal); Z88.0 Allergy status to penicillin; Z88.1 Allergy status to other antibiotic agents; Z88.3 Allergy status to other anti-infective agents; Z88.5 Allergy status to narcotic agent
CPT/HCPCS: 85025; 80048; 36415; 83735; 81025; 96374; 99284; J1953; 81003; 81015

== ENCOUNTER 2023-11-01 10:14 | Emergency (ER) | payer OTHER, SELFPAY ==
--- OUTSIDE RECORDS SUMMARY | 2023-11-01 10:18 | XMS REPORT | Continuity of Care Document ---
Author Name Unknown Address [address] [facility]. [address] [place] [address] [facility] Address [address] 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 Name Role Phone PCP, PATIENT DOES NOT HAVE A Primary Care Physic adrián Unavailable SENA WATKINS Attending Clinician Unavailable LONNIE GANDHI Attending Clinician Unavailable JENNIFER CUTLER Attending Clinician Unavail able ISAAK DEL TORO Attending Clinician Unavailab antonio Cutler Jennifer LINDO Attending Clinician + JIAN CHEN Attending Clinician Unavailable Ky Dominguez Attending Clinician [phone] Jian Chen MD Attending Clinician [phone] Doctor Unassigned, Garrison Attending Clinician U Sena Obrien MD Attending Clinician +[phone] Pancho Jacobs MD Attending Clinician +- [phone] Only, Adc Test Attending Clinician Unavailable Yon Acosta MD Attending Clinician [phone] YON ACOSTA Attending Clinician Unavailblas merida Pob, Adc Lab Main Attending Clinician UnavailKaren Pierre MA Attending Clinician Unajulisa palacios Draw, Clc-Bls Lab Attending Clinician UnavailNorman Shaikh DO Attending Clinician [phone] Gramm ADVISOR CONSULTANTGita Turner Attending Clinician [phone] GITA VINSON Attending Clinician Unavailable Lonnie Gandhi MD Attending Clinician [phone] [facility] Attending Clinician Unavailable Jai ENCARNACION, Mahendra Attending Clinician [phone] Susan BATES, Lydia Mcgregor Attending Clinician [phone] Tony ENCARNACION, Shmuel Beckham Attending Clinician [phone] SHMUEL ANDREW Attending Clinician Unavailable Kari Golden MD Attending Clinician [phone] KARI GOLDEN Attending Clinician UnavailYFN Laureano Attending Clinician Unavailab antonio Light, [facility] Resident Attending Clinician Unavailab antonio Caban MD, Janene Florian Attending Clinician [phone] LATISHA DANIEL Attending Clinician Unavailable Angela Barakat Attending Clinician + [phone] Gurvinder Perez MD Attending Clinician +[phone] GURVINDER PEREZ Attending Clinician Unavailable JENIFER BARRETT Attending Clinician Jt Roblero MD, Eliecer Attending Clinician +[phone] Jose Maria Martinez MD Attending Clinician +- [phone] Yfn oWng MD Attending Clinician + [phone] Thom Power MD, Jenifer Attending Clinician + BENJA MEDINA Attending Clinician Unavailable MARVIN ORTIZ Attending Clinician Unavailblas e 3, [facility] Room Attending Clinician Unavaila Carolyn Diaz DO Attending Clinician [phone] 5, [facility] Attending Clinician UnavailBenja Vásquez MD Attending Clinician [phone] Gunner Cordoba MD, Eunice Allison nding Clinician Marvin Funez Attending Clinician +[phone] Jesusita PETERSON, Angela Kumar Attending Clinician Unavail able 1, [facility] Attending Clinician UnavailAdrián Castaneda [facility] Attending Clinician Diana Pereyra MD, Amira Nuñez Attending Clinician + [phone] Bret Grimaldo MD Attending Clinician [phone] Lab, Adc Fam Pob I Attending Clinician Unavailab antonio SPAULDING, Jackie Attending Clinician [phone] Ultrasound, Ang-m Attending Clinician Unavaila quincy Box MD, Olu Gross Attending Clinician + [phone] Risk, Xlc-Ykzyq-Zh/High Attending Clinician Unav ailable Cameron LYSSAP, Debbi Kumar Attending Clinician [phone] Lab, Ang-Rmchp Attending Clinician Unavailable Lab, Clc - Attending Clinician Unavailable Jenna Ortiz DO Attending Clinician [phone] Wilbur PETERSON, Rosa Pizano Attending Clinician Unavailnohelia mathew 1, [facility] Attending Clinician Unavailab Kyler Weeks MD Attending Clinician [phone] [facility]edi, [facility] Attending [facility]ician Unavaila Dariela Walton Attending Clinician [phone] SENA WATKINS Admitting Clinician Unavailable LONNIE GANDHI Admitting Clinician Unavailable JOSE MARIA MARTINEZ Admitting Clinician Unavailblas e JENIFER BARRETT Admitting Clinician Unav ailable BRET GRIMALDO Admitting Clinician Unavailable JIAN CHEN Admitting Clinician Unavailable Jian Chen MD Admitting Clinician [phone] Sena Watkins MD Admitting Clinician [phone] SHMUEL ANDREW Admitting Clinician Unavailable Lonnie Gandhi MD Admitting Clinician [phone] ELIECER ROBLERO Admitting Clinician Unavailable Eliecer Roblero MD Admitting Clinician [phone] Jose Maria Martinez MD Admitting Clinician +[phone] Jenifer Barrett MD Admitting Clinician + Benja Medina MD Admitting Clinician [phone] Bret Grimaldo MD Admitting Clinician [phone] Payers Payer Name Policy Type Policy Number Effective Date Expirati on Date Source [employer] MEDICAID [id number] 2020 00:00:00 [place] [id number] 2019 00:00:00 [facility] [id number] 2023 00:00:00 Problems Condition Name Condition Details Condition Category Status Onset Date Resolution Date Last Treatment Date Treating Clinician Comments Source Need for HPV vaccinatio n Need for HPV vaccinatio n Disease Active 09-25 00:00: 00 [facility] History of total hysterecto my History of total hysterecto my Disease Active 09-25 00:00: 00 [facility] Well woman exam Well woman exam Disease Active 09-25 00:00: 00 [facility] Breast pain, right Breast pain, right Disease Active 09-25 00:00: 00 [facility] Acute pancreatit is without infection or necrosis, unspecifie d pancreatit is type Acute pancreatit is without infection or necrosis, unspecifie d pancreatit is type Disease Active 10-13 00:00: 00 [facility] Ventral hernia without obstructio n or gangrene Ventral hernia without obstructio n or gangrene Disease Active 2020-05 00:00: 00 Overview: Formattin g of this note might be different from the original. Added automatic ally from request for surgery [id number] [facility] Injury of right ureter, subsequent encounter Injury of right ureter, subsequent encounter Disease Active 05-19 00:00: 00 Overview: Formattin g of this note might be different from the original. Added automatic ally from request for surgery [id number] [facility] Status post total abdominal hysterecto my Status post total abdominal hysterecto my Disease Active 05-15 00:00: 00 [facility] Routine follow-up Routine follow-up Disease Active 2019-0518 00:00: 00 [facility] Infection of deep incisional site of obstetric surgical wound Infection of deep incisional site of obstetric surgical wound Disease Active 2019-0524 00:00: 00 [facility] Seizures Seizures Disease Active 2019-0524 00:00: 00 [facility] Open wound of anterior abdominal wall, initial encounter Open wound of anterior abdominal wall, initial encounter Disease Active 2019-05 00:00: 00 Overview: Formattin g of this note might be different from the original. Added automatic ally from request for surgery [id number] [facility] Chlamydia infection during Chlamydia infection during Disease Active 17 00:00: 00 [facility] Tobacco use during , antepartum Tobacco use during , antepartum Disease Active 16 00:00: 00 [facility] History of delivery History of delivery Disease Active 16 00:00: 00 [facility] History of eclampsia History of eclampsia Disease Active 16 00:00: 00 [facility] Previous delivery affecting , antepartum Previous delivery affecting , antepartum Disease Active 16 00:00: 00 [facility] Allergies, Adverse Reactions, Alerts Allergy Name Allergy Type Status Severity Reaction(s) Onset Date Inactive Date Treating Clinician Comments Source TRAMADOL HYDROCHL ORIDE (BULK) DRUG Active Rash 2019-05 00:00: 00 [facility] Tramadol Hydrochl oride (Bulk) Propensi ty to adverse reaction s Active Rash 2019-05 00:00: 00 [facility] Amoxicil jimena-Pot Clavulan ate Propensi ty to adverse reaction s Active Rash 0 8-18 00:00: 00 [facility] Erythrom ycin Propensi ty to adverse reaction s Active Rash 0 8-18 00:00: 00 [facility] AMOXICIL JIMENA-POT CLAVULAN ATE DRUG Active Rash 0 8-18 00:00: 00 [facility] ERYTHROM YCIN DRUG Active Rash 0 8-18 00:00: 00 [facility] Penicill in Drug Allergy Active Shortness of Breath 0 7-16 00:00: 00 Tolerated cefepime for multiple days 03/2020 [facility] PENICILL IN DRUG INGREDI Active High Hives -16 00:00: 00 [facility] Social History Social Habit Start Date Stop Date Quantity Comments Source History of tobacco use 2005-11-20 00:00:00 Cigarette Smoker [facility] History SDOH Alcohol Std Drinks [facility] History SDOH Alcohol Binge [facility] History SDOH Social Connections Get Together [facility] History SDOH Social Connections Anabaptist [facility] History SDOH Social Connections Membership [facility] History SDOH Social Connections Meetings [facility] Tobacco use and exposure 2023-09-26 00:00:00 2023-09-26 00:00:00 Smokeless tobacco non-user [facility] Cigarettes smoked current (pack per day) - Reported 2023-09-26 00:00:00 2023-09-26 00:00:00 [facility] History of Social function 2023-09-26 00:00:00 2023-09-26 00:00:00 [facility] Cigarette pack-years 2023-09-26 00:00:00 2023-09-26 00:00:00 [facility] Alcoholic beverage intake 2023-09-26 00:00:00 2023-09-26 00:00:00 Ex-drinker (finding) [facility] History SDOH Alcohol Frequency 2022-10-14 00:00:00 2022-10-14 00:00:00 1 [facility] History SDOH Social Connections Phone 2022-10-14 00:00:00 2022-10-14 00:00:00 5 [facility] History SDOH Social Connections Living 2022-10-14 00:00:00 2022-10-14 00:00:00 3 [facility] History SDOH Physical Activity DPW 2022-10-14 00:00:00 2022-10-14 00:00:00 4 [facility] History SDOH Physical Activity MPS 2022-10-14 00:00:00 2022-10-14 00:00:00 1 [facility] History SDOH Financial 2022-10-14 00:00:00 2022-10-14 00:00:00 5 [facility] History SDOH Food Worry 2022-10-14 00:00:00 2022-10-14 00:00:00 1 [facility] History SDOH Food Scarcity 2022-10-14 00:00:00 2022-10-14 00:00:00 1 [facility] History SDOH Transport Med 2022-10-14 00:00:00 2022-10-14 00:00:00 2 [facility] History SDOH Transport Non-Med 2022-10-14 00:00:00 2022-10-14 00:00:00 2 [facility] History SDOH Housing Unable to Pay 2022-10-14 00:00:00 2022-10-14 00:00:00 2 [facility] History SDOH Housing Places Lived 2022-10-14 00:00:00 2022-10-14 00:00:00 1 [facility] History SDOH Housing Homeless Last Year 2022-10-14 00:00:00 2022-10-14 00:00:00 2 [facility] Exposure to SARS-CoV-2 (event) 2021-11-13 00:00:00 2021-11-23 13:10:00 Not sure [facility] Tobacco Comment 2021-11-16 00:00:00 2021-11-16 00:00:00 1 pack a week [facility] Alcohol intake 2019-11-22 00:00:00 2019-11-22 00:00:00 Ex-drinker (finding) [facility] Sex assigned at 1985 00:00:00 1985 00:00:00 [facility] Smoking Status Start Date Stop Date Source Smokes tobacco daily 2023-09-26 00:00:00 [facility] Medications Ordered Medication Name Filled Medication Name Start Date Stop Date Current Medication? Ordering Clinician Indication Dosage Frequency Signature (SIG) Comments Components Source levetiracet am (KEPPRA ORAL) 09-25 15:04: 30 Yes 250mg Take 250 mg by mouth every 6 (six) hours. [facility] KCL (KLOR-CON M20) tablet 40 mEq 10-14 11:45: 00 10-14 11:16 :00 No 40meq 40 mEq, Oral, ONCE, 1 dose, On Mon10/14/22 at 0645, Routine [facility] ketorolac (TORADOL) injection 30 mg 10-14 02:45: 00 10-15 10:59 :00 No 30mg 30 mg, Slow IV Push, Q6H, 6 doses, First dose on Mon10/13/22 at 2145, Last dose on Mon10/15/22 at 0000, Routine [facility] lactated ringers IV infusion 1,000 mL 10-14 02:15: 00 Yes 1000mL at 150 mL/hr, 1,000 mL, IV Infusion, CONTINUOUS , Starting on Mon10/13/22 at 2115, Until Discontinu ed, Routine Univers y [facility] NaCl 0.9% (NS) bolus infusion 1,000 mL 10-14 01:45: 00 10-14 01:36 :23 No 1000mL at 999 mL/hr, 1,000 mL, IV Piggyback, ONCE, 1 dose, On Mon10/13/22 at 2045, STAT [facility] ibuprofen 600 mg tablet 10-14 01:18: 43 10-14 00:00 :00 No 600mg Take 1 tablet by mouth. [facility] ketorolac 10 mg tablet 10-14 00:00: 00 Yes [id number] 10mg Take 1 tablet by mouth every 6 (six) hours as needed for Pain (scale 4-6) or Pain (scale 7-10) for up to 12 doses. [facility] enoxaparin (LOVENOX) injection 30 mg 10-13 22:00: 00 Yes 30mg 30 mg, Subcutaneo us, DAILY, First dose on Mon10/13/22 at 1700, Until Discontinu ed, [facility] HYDR[facility]codone -acetaminop hen (NORCO 5) 5-325 mg tablet 1 tablet 10-13 20:36: 29 10-15 20:35 :29 No 1{tbl} 1 tablet, Oral, Q6HPRN, Starting on Pari 10/13/22 at 1536, Until 10/15/22 at 1535, Routine, Pain (scale 4-6) [facility] acetaminoph en (TYLENOL) tablet 650 mg 10-13 20:36: 28 Yes 650mg 650 mg, Oral, Q6HPRN, Starting on Pari 10/13/22 at 1536, Until Discontinu ed, Routine, Pain (scale 1-3) [facility] ondansetron (ZOFRAN (PF)) injection 4 mg 10-13 19:00: 00 10-13 18:36 :00 No 4mg 4 mg, Slow IV Push, ONCE, 1 dose, On Pari 10/13/22 at 1400, ATIF [facility] NaCl 0.9% (NS) bolus infusion 1,000 mL 10-13 19:00: 00 10-13 20:45 :00 No 1000mL at 999 mL/hr, 1,000 mL, IV Infusion, ONCE, 1 dose, On Pari 10/13/22 at 1400, STAT [facility] FENTanyl PF (SUBLIMAZE (PF)) injection 25 mcg 10-13 18:45: 00 10-13 18:37 :00 No 25ug 25 mcg, Slow IV Push, ONCE, 1 dose, On Pari 10/13/22 at 1345, STAT [facility] iopamidol (ISOVUE 370-500 mL) injection 50 mL 10-13 18:20: 00 10-13 18:22 :00 No [id number] 50mL 50 mL, Intravenou s, ONCE, 1 dose, On Pari 10/13/22 at 1330, Routine [facility] methocarbam oL 500 mg tablet 19 00:00: 00 10-14 00:00 :00 No [id number] 500mg Take 1 tablet by mouth 4 (four) times daily as needed for Pain (scale 7-10). [facility] ibuprofen 600 mg tablet 2-11 16:19: 07 Yes 600mg Take 600 mg by mouth. [facility] ondansetron 4 mg disintegrat ing tablet 06-18 00:00: 00 10-14 00:00 :00 No [id number] 4mg Take 1 tablet by mouth every 8 (eight) hours as needed for Nausea and Vomiting (N/V). [facility] ciprofloxac in HCl 500 mg tablet 3-18 00:00: 00 10-14 00:00 :00 No [id number] 500mg Take 1 tablet by mouth every 12 (twelve) hours. [facility] levETIRAcet am 250 mg tablet - 00:00: 00 10-14 00:00 :00 No [id number] 500mg Take 2 tablets by mouth 2 (two) times daily. [facility] gabapentin 300 mg capsule 2019-05 00:00: 05-26 00:00 :00 No [id number] 300mg Take 1 capsule by mouth 3 (three) times daily as needed for Pain (scale 4-6) (Back pain and incisional pain). [facility] zonisamide 100 mg capsule 2019-05 00:00: 00 05-26 00:00 :00 No [id number] 100mg Take 1 capsule by mouth daily. [facility] enoxaparin 40 mg/0.4 mL injection 2019-05 00:00: 00 05-26 00:00 :00 No [id number] 40mg inject 0.4 mL under the skin daily. [facility] ferrous sulfate 325 mg (65 mg iron) tablet 2019-05 00:00: 00 10-14 00:00 :00 No [id number] 325mg Take 1 tablet by mouth 2 (two) times daily. [facility] levETIRAcet am 1,000 mg tablet 2019-05 2 00:00: 00 10-14 00:00 :00 No [id number] 2000mg Take 2 tablets by mouth 2 (two) times daily. [facility] simethicone 80 mg chewable tablet 2019-05 2-10 00:00: 10-14 00:00 :00 No [id number] 160mg Take 2 tablets by mouth after meals and at bedtime. [facility] ascorbic acid, vitamin C, 500 mg tablet 2019-05 2-10 00:00: 00 10-14 00:00 :00 No [id number] 500mg Take 1 tablet by mouth 2 (two) times daily. [facility] cyclobenzap rine 10 mg tablet 2019-05 2- 00:00: 06-18 00:00 :00 No [id number] 10mg Take 1 tablet by mouth 3 (three) times daily as needed for Muscle Spasms. [facility] acetaminoph en 325 mg tablet 2019-05 2- 00:00: 04-17 05:59 :00 No [id number] 650mg Take 2 tablets by mouth every 6 (six) hours as needed for Pain (scale 1-3). [facility] sennosides 8.6 mg tablet 2019-05 2- 00:00: 05-26 00:00 :00 No [id number] 8.6mg Take 1 tablet by mouth 2 (two) times daily. [facility] PNV 67-iron ps-folate no.1-dha (VITAFOL ULTRA) 29 mg iron- 1 mg-200 mg Cap 9-10 00:00: 00 05-26 00:00 :00 No 1{capsu le} Take 1 capsule by mouth daily. [facility] levETIRAcet am (KEPPRA) 500 mg tablet - 00:00: 00 02-24 00:00 :00 No [id number] 1000mg Take 2 tablets by mouth 2 (two) times daily. [facility] foLIC acid 1 mg tablet 8-17 00:00: 00 05-26 00:00 :00 No [id number] 3mg Take 3 tablets by mouth daily. [facility] aspirin 81 mg EC tablet 8- 00:00: 04-16 00:00 :00 No [id number] 81mg Take 1 tablet by mouth daily. [facility] PNV 67-iron ps-folate no.1-dha (VITAFOL ULTRA) 29 mg iron- 1 mg-200 mg Cap 16 00:00: 00 01-15 00:00 :00 No [id number] 1{capsu le} Take 1 capsule by mouth daily. [facility] Immunizations Ordered Immunization Name Filled Immunization Name Date Status Comments Source Influenza Virus Vaccine Quad .5 mL IM 6+ MO 2020-04-22 00:00:00 Completed [facility] Influenza Virus Vaccine Quad .5 mL IM 6+ MO 2020-04-22 00:00:00 Completed [facility] Influenza Virus Vaccine Quad .5 mL IM 6+ MO 2020-04-22 00:00:00 Completed [facility] TDAP 2020-03-18 00:00:00 Completed [facility] TDAP 2020-03-18 00:00:00 Completed [facility] TDAP 2020-03-18 00:00:00 Completed [facility] TDAP Unknown Completed [facility] Influenza Virus Vaccine Quad .5 mL IM 6+ MO (FLUZONE/FLULAVAL/F LUARIX) Unknown Completed [facility] TDAP Unknown Completed [facility] Influenza Virus Vaccine Quad .5 mL IM 6+ MO (FLUZONE/FLULAVAL/F LUARIX) Unknown Completed [facility] TDAP Unknown Completed [facility] Influenza Virus Vaccine Quad .5 mL IM 6+ MO (FLUZONE/FLULAVAL/F LUARIX) Unknown Completed [facility] TDAP Unknown Completed [facility] Influenza Virus Vaccine Quad .5 mL IM 6+ MO (FLUZONE/FLULAVAL/F LUARIX) Unknown Completed [facility] TDAP Unknown Completed [facility] Influenza Virus Vaccine Quad .5 mL IM 6+ MO (FLUZONE/FLULAVAL/F LUARIX) Unknown Completed [facility] TDAP Unknown Completed [facility] TDAP Unknown Completed [facility] TDAP Unknown Completed [facility] Influenza Virus Vaccine Quad .5 mL IM 6+ MO (FLUZONE/FLULAVAL/F LUARIX) Unknown Completed [facility] HPV9 Unknown Completed [facility] TDAP Unknown Completed [facility] Influenza Virus Vaccine Quad .5 mL IM 6+ MO (FLUZONE/FLULAVAL/F LUARIX) Unknown Completed [facility] HPV9 Unknown Completed [facility] TDAP Unknown Completed [facility] Influenza Virus Vaccine Quad .5 mL IM 6+ MO (FLUZONE/FLULAVAL/F LUARIX) Unknown Completed [facility] HPV9 Unknown Completed [facility] TDAP Unknown Completed [facility] Influenza Virus Vaccine Quad .5 mL IM 6+ MO (FLUZONE/FLULAVAL/F LUARIX) Unknown Completed [facility] HPV9 Unknown Completed [facility] TDAP Unknown Completed [facility] Influenza Virus Vaccine Quad .5 mL IM 6+ MO (FLUZONE/FLULAVAL/F LUARIX) Unknown Completed [facility] HPV9 Unknown Completed [facility] Vital Signs Vital Name Observation Time Observation Value Comments S ource Systolic blood pressure 2023-09-26 19:59:00 122 mm[Hg] [facility] Diastolic blood pressure 2023-09-26 19:59:00 77 mm[Hg] [facility] Heart rate 2023-09-26 19:59:00 55 /min [facility] Body temperature 2023-09-26 19:59:00 36.67 Alma [facility] Respiratory rate 2023-09-26 19:59:00 17 /min [facility] Body height 2023-09-26 19:59:00 149.9 cm [facility] Body weight 2023-09-26 19:59:00 42.185 kg [facility] BMI 2023-09-26 19:59:00 18.78 kg/m2 [facility] Systolic blood pressure 2022-10-14 16:58:00 93 mm[Hg] [facility] Diastolic blood pressure 2022-10-14 16:58:00 59 mm[Hg] [facility] Heart rate 2022-10-14 16:58:00 67 /min [facility] Body temperature 2022-10-14 16:58:00 36.17 Alma [facility] Respiratory rate 2022-10-14 16:58:00 16 /min [facility] Oxygen saturation in Arterial blood by Pulse oximetry 2022-10-14 16:58:00 99 /min [facility] Body weight 2022-10-14 08:18:00 43.5 kg [facility] BMI 2022-10-14 08:18:00 19.37 kg/m2 [facility] Body height 2022-10-13 21:57:00 149.9 cm [facility] Systolic blood pressure 2021-11-23 19:35:00 111 mm[Hg] [facility] Diastolic blood pressure 2021-11-23 19:35:00 73 mm[Hg] [facility] Heart rate 2021-11-23 19:35:00 68 /min [facility] Body temperature 2021-11-23 19:35:00 36.78 Alma [facility] Respiratory rate 2021-11-23 19:35:00 16 /min [facility] Body height 2021-11-23 19:35:00 149.9 cm [facility] Body weight 2021-11-23 19:35:00 39.418 kg [facility] BMI 2021-11-23 19:35:00 17.55 kg/m2 [facility] Oxygen saturation in Arterial blood by Pulse oximetry 2021-11-23 19:35:00 99 /min [facility] Procedures Procedure Date / Time Performed Performing Clinicia n Source PAP SMEAR-LIQUID BASED-CP 2023-09-26 21:11:00 Jennifer Cutler [facility] HIV 1/2 AG-AB WITH REFLEX 2023-09-26 20:58:00 Jennifer Cutler [facility] GARDASIL 9 (HPV 9V) VACCINE 2023-09-26 20:11:51 Jennifer Cutler [facility] CBC WITHOUT DIFF 2022-10-14 19:41:00 Kathy Russell [facility] CREATINE KINASE 2022-10-14 09:31:00 [facility] 2022-10-14 09:31:00 [facility] MAGNESIUM 2022-10-14 09:31:00 Seferino Romero [facility] COMP. METABOLIC PANEL ([id number]) 2022-10-14 09:31:00 Seferino Romero [facility] CBC WITH DIFF 2022-10-14 09:31:00 [facility]ino Romero [facility] CT ABDOMEN PELVIS W CONTRAST 2022-10-13 18:25:56 Ky Sommer [facility] US GALL BLADDER 2022-10-13 17:16:14 [facility] 2022-10-13 16:32:00 Ky Sommer [facility] MAGNESIUM 2022-10-13 16:32:00 Ky Sommer [facility] COMP. METABOLIC PANEL ([id number]) 2022-10-13 16:32:00 Ky Sommer [facility] LIPID PANEL ([id number])(TOTAL CHOLESTEROL, TRIGLYCERIDES, HDL) 2022-10-13 16:32:00 [place] Sommer [facility] CBC WITH DIFF 2022-10-13 16:32:00 [place] Sommer [facility] URINALYSIS 2022-10-13 16:32:00 [place] Sommer [facility] NOTICE OF PRIVACY PRACTICES 2022-10-13 15:41:30 Doctor Unassigned, [place] [facility] CONSENT/REFUSAL FOR DIAGNOSIS AND TREATMENT 2022-10-13 15:40:33 Doctor Unassigned, [place] [facility] Encounters Start Date/Time End Date/Time Encounter Type Admission Type Attending Clinicians Care Facility Care Department Encounter ID Source 2021-04-06 13:14:24 Outpatient SENA WATKINS [facility] ELIANA [id number] [facility] 2021-03-06 16:46:46 Outpatient LONNIE GANDHI [facility] [id number] [facility] 2021-03-06 05:35:16 Outpatient P [facility] [id number] [facility] 2021-03-06 02:54:36 Outpatient P [facility] [id number] [facility] 2021-03-06 02:07:17 Outpatient [facility] [id number] [facility] 2021-03-05 19:46:43 Outpatient P [facility] [id number] [facility] 2021-03-05 19:43:52 Outpatient P [facility] [id number] [facility] 2021-03-05 13:09:17 Emergency [facility] [id number] [facility] 2024-04-03 10:15:00 2024-04-03 10:15:00 Outpatient R [facility] [id number] [facility] 2023-11-01 13:45:00 2023-11-01 13:45:00 Outpatient R JENNIFER CUTLER [facility] [id number] [facility] 2023-11-01 10:15:00 2023-11-01 10:15:00 Outpatient R [facility] [id number] [facility] 2023-09-26 15:00:00 2023-09-26 15:53:17 Outpatient R JENNIFER CUTLER [facility] [id number] [facility] 2023-09-26 15:00:00 2023-09-26 15:53:17 Office Visit Jennifer Cutler [facility] REMEDIATION CONSULTANT [facility] 1.2.840.114 350.1.13.10 4.2.7.2.686 [id number] [facility] 2022-10-13 10:57:00 2022-10-14 16:45:00 Outpatient X JIAN CHEN [facility] [id number] [facility] 2022-10-13 10:57:00 2022-10-14 16:45:00 Emergency Kemal Ky Delmy RocaJian tai [facility] 1.2.840.114 350.1.13.10 4.2.7.2.686 [id number] [facility] 2022-01-18 09:00:00 2022-01-18 09:00:00 Outpatient R JUNE SENA [facility] [id number] [facility] 2022-01-18 09:00:00 2022-01-18 09:00:00 Outpatient R JUNE SENA [facility] [id number] [facility] 2022-01-18 09:00:00 2022-01-18 09:00:00 Outpatient R [facility] [id number] [facility] 2021-12-29 00:00:00 2021-12-29 00:00:00 Patient Secure Msg Doctor Unassigned, Garrison [facility] MEDICAL OFFICE BUILDING 1.2.840.114 350.1.13.10 4.2.7.2.686 [id number] [facility] 2021-11-23 14:30:00 2021-11-23 14:59:08 Outpatient R [facility] [id number] [facility] 2021-11-23 14:30:00 2021-11-23 14:59:08 Office Visit June [facility] MEDICAL OFFICE BUILDING 1.2.840.114 350.1.13.10 4.2.7.2.686 [id number] [facility] 2021-11-23 14:30:00 2021-11-23 14:30:00 Outpatient R JUNE SENA [facility] [id number] [facility] 2021-11-19 16:01:43 2021-11-19 23:59:00 Outpatient R [facility] [id number] [facility] 2021-11-19 15:55:00 2021-11-19 23:59:00 Hospital Encounter Sena Watkins [facility] 1.2.840.114 350.1.13.10 4.2.7.2.686 [id number] [facility] 2021-11-16 14:30:00 2021-11-16 15:38:57 Outpatient R SENA WATKINS [facility] [id number] [facility] 2021-11-16 14:30:00 2021-11-16 15:38:57 Office Visit June [facility] MEDICAL OFFICE BUILDING 1.2.840.114 350.1.13.10 4.2.7.2.686 [id number] [facility] 2021-11-09 00:00:00 2021-11-09 00:00:00 Patient Secure Msg June [facility] MEDICAL OFFICE BUILDING 1.2.840.114 350.1.13.10 4.2.7.2.686 [id number] [facility] 2021-07-13 08:45:00 2021-07-13 09:14:05 Office Visit June [facility] MEDICAL OFFICE BUILDING 1.2.840.114 350.1.13.10 4.2.7.2.686 [id number] [facility] 2021-07-13 08:45:00 2021-07-13 09:14:05 Outpatient R SENA WATKINS [facility] [id number] [facility] 2021-07-13 08:45:00 2021-07-13 08:45:00 Outpatient R [facility] [id number] [facility] 2021-06-29 08:00:00 2021-06-29 08:58:22 Outpatient R SENA WATKINS [facility] [id number] [facility] 2021-06-29 08:00:00 2021-06-29 08:58:22 Office Visit June, [facility] MEDICAL OFFICE BUILDING 1.2.840.114 350.1.13.10 4.2.7.2.686 [id number] [facility] 2021-06-29 00:00:00 2021-06-29 00:00:00 Letter (Out) June [facility] MEDICAL OFFICE BUILDING 1.2.840.114 350.1.13.10 4.2.7.2.686 [id number] [facility] 2021-06-29 00:00:00 2021-06-29 00:00:00 Orders Only Doctor Unassigned, Garrison [facility] 1.2840.114 350.1.13.10 4.2.7.2.686 [id number] [facility] 2021-06-14 05:08:00 2021-06-18 16:18:00 Outpatient R JUNE SENA [facility] [id number] [facility] 2021-06-14 05:08:00 2021-06-18 16:18:00 Hospital Encounter Sena Watkins [facility] 1.2840.114 350.1.13.10 4.2.7.2.686 [id number] [facility] 2021-06-14 07:15:00 2021-06-14 13:15:00 Surgery Sena Watkins [facility] 1.2840.114 350.1.13.10 4.2.7.2.686 [id number] [facility] 2021-06-14 00:00:00 2021-06-14 00:00:00 Orders Only Doctor Unassigned, Garrison [facility] 1.2840.114 350.1.13.10 4.2.7.2.686 [id number] [facility] 2021-06-11 13:45:00 2021-06-11 14:00:00 Laboratory Only Only, Adc Test Yon Acosta [facility] 1.840.114 350.1.13.10 4.2.7.2.686 [id number] [facility] 2021-06-11 13:45:00 2021-06-11 13:45:00 Outpatient R YON ACOSTA [facility] [id number] [facility] 2021-05-31 00:00:00 2021-05-31 00:00:00 Patient Secure Msg Doctor Unassigned, Garrison [facility] MEDICAL OFFICE BUILDING 1.840.114 350.1.13.10 4.2.7.2.686 [id number] [facility] 2021-05-28 13:30:00 2021-05-28 13:45:00 Finance Business Manager Visit Pob, Adc Lab Main [facility] BUILD[facility] 1.840.114 350.1.13.10 4.2.7.2.686 [id number] [facility] 2021-05-28 13:30:00 2021-05-28 13:30:00 Outpatient Anival JUNE SENA [facility] [id number] [facility] 2021-05-28 00:00:00 2021-05-28 00:00:00 Orders Only Doctor Unassigned, Garrison [facility] 1.840.114 350.1.13.10 4.2.7.2.686 [id number] [facility] 2021-05-27 00:00:00 2021-05-27 00:00:00 Patient Secure Msg June [facility] MEDICAL OFFICE BUILDING 1.284.114 350.1.13.10 4.2.7.2.686 [id number] [facility] 2021-05-10 00:00:00 2021-05-10 00:00:00 Patient Secure Msg Oswald Karen C [facility] MEDICAL OFFICE BUILDING 1..840.114 350.1.13.10 4.2.7.2.686 [id number] [facility] 2021-04-06 15:15:00 2021-04-06 15:15:00 Outpatient R JUNE SENA [facility] [id number] [facility] 2021-04-06 12:37:43 2021-04-06 12:52:43 Finance Business Manager Visit Draw, Clc-Bls Lab June [facility] MEDICAL OFFICE BUILDING 1..840.114 350.1.13.10 4.2.7.2.686 [id number] [facility] 2021-04-06 12:45:00 2021-04-06 12:45:00 Outpatient R SENA WATKINS [facility] [id number] [facility] 2021-04-06 11:50:37 2021-04-06 12:44:14 Office Visit June Sena [facility] MEDICAL OFFICE BUILDING 1..840.114 350.1.13.10 4.2.7.2.686 [id number] [facility] 2021-04-06 11:45:00 2021-04-06 12:44:14 Outpatient R SENA WATKINS [facility] [id number] [facility] 2021-04-06 10:45:00 2021-04-06 10:45:00 Outpatient R SENA WATKINS [facility] [id number] [facility] 2021-03-26 14:42:52 2021-03-26 23:59:00 Outpatient R SENA WATKINS [facility] [id number] [facility] 2021-03-26 14:00:00 2021-03-26 23:59:00 Hospital Encounter June Sena [facility] 1..840.114 350.1.13.10 4.2.7.2.686 [id number] [facility] 2021-03-25 00:00:00 2021-03-25 00:00:00 Orders Only Doctor Unassigned, Garrison [facility] 1.2840.114 350.1.13.10 4.2.7.2.686 [id number] [facility] 2021-03-23 16:48:21 2021-03-23 17:03:21 Office Visit Sena Watkins [facility] MEDICAL OFFICE BUILDING 1.2840.114 350.1.13.10 4.2.7.2.686 [id number] [facility] 2021-03-23 16:45:00 2021-03-23 16:45:00 Outpatient R SENA WATKINS [facility] [id number] [facility] 2021-03-23 00:00:00 2021-03-23 00:00:00 Orders Only Doctor Unassigned, Garrison [facility] 1.2840.114 350.1.13.10 4.2.7.2.686 [id number] [facility] 2020-07-28 00:00:00 2020-07-28 00:00:00 Patient Outreach Norman Pereyra [facility] 1.840.114 350.1.13.10 4.2.7.2.686 [id number] [facility] 2020-07-23 00:00:00 2020-07-23 00:00:00 Telephone Gita Vinson [facility] Building 1.2840.114 350.1.13.10 4.2.7.2.686 [id number] [facility] 2020-07-23 00:00:00 2020-07-23 00:00:00 Telephone Gita Vinson [facility] Building 1.2840.114 350.1.13.10 4.2.7.2.686 [id number] [facility] 2020-07-15 08:53:51 2020-07-15 09:41:11 [facility] 1.2840.114 350.1.13.10 4.2.7.2.686 [id number] [facility] 2020-07-15 09:00:00 2020-07-15 09:00:00 Outpatient R GITA VINSON [facility] [id number] [facility] 2020-07-09 00:00:00 2020-07-09 00:00:00 Patient Secure Lonnie Santana [facility] 1.840.114 350.1.13.10 4.2.7.2.686 [id number] [facility] 2020-07-08 00:00:00 2020-07-08 00:00:00 Outpatient LONNIE AGUILAR [facility] [id number] [facility] 2020-07-06 10:17:57 2020-07-06 23:59:00 Outpatient LONNIE AGUILAR [facility] [id number] [facility] 2020-07-06 10:00:00 2020-07-06 23:59:00 Hospital Encounter Lonnie Gandhi [facility] 1.2840.114 350.1.13.10 4.2.7.2.686 [id number] [facility] 2020-07-06 00:00:00 2020-07-06 00:00:00 Orders Only Doctor Unassigned, Garrison [facility] 1.2840.114 350.1.13.10 4.2.7.2.686 [id number] [facility] 2020-06-30 09:17:38 2020-06-30 09:32:38 Finance Business Manager Visit [facility] Oksana [facility] 1.2840.114 350.1.13.10 4.2.7.2.686 [id number] [facility] 2020-06-30 08:34:35 2020-06-30 09:16:54 Office Visit [facility] 1.2840.114 350.1.13.10 4.2.7.2.686 [id number] [facility] 2020-06-30 08:45:00 2020-06-30 08:45:00 Outpatient R OKSANA [facility] [id number] [facility] 2020-06-16 00:00:00 2020-06-16 00:00:00 Telephone Mahendra Vergara [facility] Medical Office Building 1.2840.114 350.1.13.10 4.2.7.2.686 [id number] [facility] 2020-06-04 22:40:00 2020-06-05 02:05:00 Emergency Susan, Shmuel Bruce [facility] 1.2.114 350.1.13.10 4.2.7.2.686 [id number] [facility] 2020-06-04 22:40:00 2020-06-05 02:05:00 Emergency X SHMUEL ANDREW [facility] ERT [id number] [facility] 2020-06-04 08:10:00 2020-06-04 12:48:00 Hospital Encounter [facility] 1.2.114 350.1.13.10 4.2.7.2.686 [id number] [facility] 2020-06-04 00:00:00 2020-06-04 00:00:00 Orders Only Doctor Unassigned, Garrison [facility] 1.2.840.114 350.1.13.10 4.2.7.2.686 [id number] [facility] 2020-06-03 12:09:36 2020-06-03 12:24:36 Laboratory Only Only, Adc Test Oksana [facility] 1.2.840.114 350.1.13.10 4.2.7.2.686 [id number] [facility] 2020-06-03 11:30:00 2020-06-03 11:30:00 Outpatient R [facility] [id number] [facility] 2020-05-27 09:35:03 2020-05-27 10:21:57 Office Visit Kari Golden [facility] 1.2840.114 350.1.13.10 4.2.7.2.686 [id number] [facility] 2020-05-27 09:00:00 2020-05-27 09:00:00 Outpatient R KARI GOLDEN [facility] [id number] [facility] 2020-05-26 16:19:30 2020-05-26 16:34:30 Office Visit Sena Watkins [facility] Office Building 1.2840.114 350.1.13.10 4.2.7.2.686 [id number] [facility] 2020-05-26 16:00:00 2020-05-26 16:00:00 Outpatient R SENA WATKINS [facility] [id number] [facility] 2020-05-26 10:15:00 2020-05-26 10:15:00 Outpatient R SENA WATKINS [facility] [id number] [facility] 2020-05-19 11:49:29 2020-05-19 12:04:29 Office Visit Oksana [facility] 1.2840.114 350.1.13.10 4.2.7.2.686 [id number] [facility] 2020-05-19 10:45:00 2020-05-19 10:45:00 Outpatient R YFN WONG [facility] [id number] [facility] 2020-05-18 08:15:00 2020-05-18 08:15:00 Outpatient R FEDERICOPENNYJENNIFER [facility] [id number] [facility] 2020-05-15 10:44:56 2020-05-15 12:03:07 Office Visit Kuldeep [facility] Resident Janene Caban [facility] 1.840.114 350.1.13.10 4.2.7.2.686 [id number] [facility] 2020-05-15 10:30:00 2020-05-15 10:30:00 Outpatient R [facility] [id number] [facility] 2020-05-11 00:00:00 2020-05-11 00:00:00 Patient Secure Msg Doctor Unassigned, Garrison [facility] MEDICAL OFFICE BUILDING 1..840.114 350.1.13.10 4.2.7.2.686 [id number] [facility] 2020-05-05 10:45:00 2020-05-05 10:45:00 Outpatient R MARÍALATISHA [facility] [id number] [facility] 2020-04-28 10:42:54 2020-04-28 11:08:50 Finance Business Manager Visit [facility] Angela Sandoval [facility] 1.840.114 350.1.13.10 4.2.7.2.686 [id number] [facility] 2020-04-28 10:15:00 2020-04-28 10:15:00 Outpatient R JARED DANIELUA [facility] [id number] [facility] 2020-04-27 00:00:00 2020-04-27 00:00:00 Telephone Jai, Bilal [facility] Medical Office Building 1.84.114 350.1.13.10 4.2.7.2.686 [id number] [facility] 2020-04-24 09:08:24 2020-04-24 09:46:39 Routine Visit Jennifer Cutler [facility] REMEDIATION CONSULTANT [facility] 1.0.114 350.1.13.10 4.2.7.2.686 [id number] [facility] 2020-04-24 09:15:00 2020-04-24 09:15:00 Outpatient R JENNIFER CUTLER [facility] [id number] [facility] 2020-04-23 12:50:40 2020-04-23 13:25:43 Office Visit Kuldeep [facility] Gurvinder Padilla [facility] 1..114 350.1.13.10 4.2.7.2.686 [id number] [facility] 2020-04-23 13:15:00 2020-04-23 13:15:00 Outpatient R GURVINDER PEREZ [facility] [id number] [facility] 2020-04-22 10:00:04 2020-04-22 10:17:22 Finance Business Manager Visit [facility] Kari Golden [facility] 1..114 350.1.13.10 4.2.7.2.686 [id number] [facility] 2020-04-22 09:09:57 2020-04-22 09:53:02 Office Visit Kari Golden [facility] 1..114 350.1.13.10 4.2.7.2.686 [id number] [facility] 2020-04-22 09:00:00 2020-04-22 09:00:00 Outpatient R KARI GOLDEN [facility] [id number] [facility] 2020-03-23 14:37:00 2020-04-16 14:15:00 Inpatient P THOM Pizano [facility] [id number] [facility] 2020-03-23 14:37:00 2020-04-16 14:15:00 Hospital Encounter Eliecer Roblero [facility] 1.114 350.1.13.10 4.2.7.2.686 [id number] [facility] 2020-03-31 13:45:00 2020-03-31 13:45:00 Outpatient P [facility] [id number] [facility] 2020-03-30 13:00:00 2020-03-30 13:00:00 Outpatient R [facility] [id number] [facility] 2020-03-25 00:00:00 2020-03-25 00:00:00 Patient Secure Msg Doctor Unassigned, Garrison [facility] REMEDIATION CONSULTANT [facility]ILD [facility] 1.840.114 350.1.13.10 4.2.7.2.686 [id number] [facility] 2020-03-25 00:00:00 2020-03-25 00:00:00 Patient Secure Msg Doctor Unassigned, Garrison [facility] REMEDIATION CONSULTANT [facility] CHILD [facility] 1.840.114 350.1.13.10 4.2.7.2.686 [id number] [facility] 2020-03-23 11:30:00 2020-03-23 11:30:00 Outpatient R BENJA MEDINA [facility] [id number] [facility] 2020-03-16 05:00:00 2020-03-21 19:08:00 Hospital Encounter Jose Maria Martinez [facility] 1..114 350.1.13.10 4.2.7.2.686 [id number] [facility] 2020-03-19 08:30:00 2020-03-19 08:30:00 Outpatient R MARVIN ORTIZ [facility] [id number] [facility] 2020-03-17 14:39:12 2020-03-17 15:38:29 Finance Business Manager Visit 3, [facility] 1.2.840.114 350.1.13.10 4.2.7.2.686 [id number] [facility] 2020-03-11 00:00:00 2020-03-11 00:00:00 Case Management Carolyn Gibbons [facility] 1.2.840.114 350.1.13.10 4.2.7.2.686 [id number] [facility] 2020-03-06 13:11:00 2020-03-10 17:40:00 Hospital Encounter Thom pizano [facility] 1.2.840.114 350.1.13.10 4.2.7.2.686 [id number] [facility] 2020-03-10 11:41:28 2020-03-10 13:35:11 Finance Business Manager Visit 5, [facility] 1.2.840.114 350.1.13.10 4.2.7.2.686 [id number] [facility] 2020-03-09 10:30:00 2020-03-09 10:30:00 Outpatient R [facility] [id number] [facility] 2020-03-06 09:45:00 2020-03-06 09:45:00 Outpatient R JENNIFER CUTLER [facility] [id number] [facility] 2020-02-27 14:19:37 2020-02-27 23:59:00 Hospital Encounter Masel, Benja [facility] 1.840.114 350.1.13.10 4.2.7.2.686 [id number] [facility] 2020-02-27 14:45:00 2020-02-27 14:45:00 Outpatient R BENJA MEDINA [facility] [id number] [facility] 2020-02-24 10:41:49 2020-02-25 14:35:34 Office Visit Eunice Hopson Benja Medina [facility] Medical Office Building 1.840.114 350.1.13.10 4.2.7.2.686 [id number] [facility] 2020-02-25 10:23:18 2020-02-25 10:47:56 Routine Visit Marvin Ortiz [facility] REMEDIATION CONSULTANT [facility] MATERNAL & CHILD [facility] 1.840.114 350.1.13.10 4.2.7.2.686 [id number] [facility] 2020-02-25 10:30:00 2020-02-25 10:30:00 Outpatient R MARVIN ORTIZ [facility] [id number] [facility] 2020-02-25 00:00:00 2020-02-25 00:00:00 Refill Benja Medina [facility] Medical Office Building 1.840.114 350.1.13.10 4.2.7.2.686 [id number] [facility] 2020-02-25 00:00:00 2020-02-25 00:00:00 Refill Doctor Unassigned, Garrison [facility] REMEDIATION CONSULTANT [facility] CHILD [facility] 1.2840.114 350.1.13.10 4.2.7.2.686 [id number] [facility] 2020-02-24 11:22:53 2020-02-24 11:37:53 Finance Business Manager Visit Draw, Clc-Bls Lab Benja Medina [facility] Medical Office Building 1.2840.114 350.1.13.10 4.2.7.2.686 [id number] [facility] 2020-02-24 11:00:00 2020-02-24 11:00:00 Outpatient R OSCAR BENJA [facility] [id number] [facility] 2020-02-24 00:00:00 2020-02-24 00:00:00 Transition of Care Angela Mc Guido Springer 1.2.840.114 350.1.13.10 4.2.7.2.686 [id number] [facility] 2020-02-17 09:07:00 2020-02-21 13:00:00 [facility] 1.2840.114 350.1.13.10 4.2.7.2.686 [id number] [facility] 2020-02-21 09:13:44 2020-02-21 09:43:44 Finance Business Manager Visit 1, [facility] 1.20.114 350.1.13.10 4.2.7.2.686 [id number] [facility] 2020-02-18 00:00:00 2020-02-18 00:00:00 Patient Secure Msg Doctor Unassigned, [place] [facility] REMED[facility]ATION CONS[facility] 1.20.114 350.1.13.10 4.2.7.2.686 [id number] [facility] 2020-02-17 09:00:00 2020-02-17 09:00:00 Outpatient R [facility] [id number] [facility] 2020-02-17 08:30:00 2020-02-17 08:30:00 Outpatient R BENJA MEDINA [facility] [id number] [facility] 2020-02-14 10:56:34 2020-02-14 11:11:34 Laboratory Only Only, Adc Test Benja Medina [facility] 1.840.114 350.1.13.10 4.2.7.2.686 [id number] [facility] 2020-02-14 11:00:00 2020-02-14 11:00:00 Outpatient R BENJA MEDINA [facility] [id number] [facility] 2020-02-13 00:00:00 2020-02-13 00:00:00 Patient Secure Msg Doctor Unassigned, [place] [facility] 1..114 350.1.13.10 4.2.7.2.686 [id number] [facility] 2020-02-10 14:30:00 2020-02-10 14:30:00 Outpatient R [facility] [id number] [facility] 2020-02-10 10:09:03 2020-02-10 10:39:03 Telemedici ne Visit Faculty, Amira Varela [facility] CONS[facility] MATERNAL & CHILD [facility] 1..114 350.1.13.10 4.2.7.2.686 [id number] [facility] 2020-02-03 10:20:00 2020-02-03 12:00:00 Hospital Encounter Bret Grimaldo [facility] 1..114 350.1.13.10 4.2.7.2.686 [id number] [facility] 2020-02-03 00:00:00 2020-02-03 00:00:00 Telephone Marvin Ortiz [facility] MATERNAL & CHILD [facility] 1..114 350.1.13.10 4.2.7.2.686 [id number] [facility] 2020-02-03 00:00:00 2020-02-03 00:00:00 Orders Only Doctor Unassigned, Garrison [facility] 1..114 350.1.13.10 4.2.7.2.686 [id number] [facility] 2020-01-29 17:13:33 2020-01-29 17:33:33 Laboratory Only Lab, Adc Fam Pob I [facility] Professio nal Office Building One 1.114 350.1.13.10 4.2.7.2.686 [id number] [facility] 2020-01-29 17:20:00 2020-01-29 17:20:00 Outpatient R [facility] [id number] [facility] 2020-01-29 00:00:00 2020-01-29 00:00:00 Patient Secure Msg Doctor Unassigned, Garrison [facility] REMEDIATION CONSULTANT [facility] & CHILD [facility] 1..114 350.1.13.10 4.2.7.2.686 [id number] [facility] 2020-01-29 00:00:00 2020-01-29 00:00:00 Telephone Marvin Ortiz [facility] REMEDIATION CONSULTANT [facility] CHILD [facility] 1..114 350.1.13.10 4.2.7.2.686 [id number] [facility] 2020-01-28 12:56:17 2020-01-28 14:20:33 Finance Business Manager Visit Ultrasound, Olu Eddy [facility] REM[facility]ATION CONS[facility] & CHILD [facility] 1..114 350.1.13.10 4.2.7.2.686 [id number] [facility] 2020-01-28 13:00:00 2020-01-28 13:00:00 Outpatient R [facility] [id number] [facility] 2020-01-27 11:00:00 2020-01-27 11:00:00 Outpatient BENJA MARINELLI [facility] [id number] [facility] 2020-01-24 00:00:00 2020-01-24 00:00:00 Telephone Eunice Hopson [facility] Office Building 1.2.840.114 350.1.13.10 4.2.7.2.686 [id number] [facility] 2020 10:00:00 2020 10:00:00 Outpatient BENJA MARINELLI [facility] [id number] [facility] 2020-01-21 10:19:13 2020-01-21 10:38:41 Routine Visit Marvin Ortiz [facility]ATION CONS[facility] MATERNAL & CHILD [facility] 1..840.114 350.1.13.10 4.2.7.2.686 [id number] [facility] 2020-01-21 10:30:00 2020-01-21 10:30:00 Outpatient MARVIN ORNELAS [facility] [id number] [facility] 2020-01-16 08:34:38 2020-01-16 09:18:49 Routine Visit Risk, HenriqueRmchp-N p/High Debbi Barnes [facility] MATERNAL & CHILD [facility] 1..840.114 350.1.13.10 4.2.7.2.686 [id number] [facility] 2020-01-16 09:00:00 2020-01-16 09:00:00 Outpatient R [facility] [id number] [facility] 2020-01-14 10:15:00 2020-01-14 10:15:00 Outpatient MARVIN ORNELAS [facility] [id number] [facility] 2019-12-31 11:05:42 2019-12-31 11:09:49 Finance Business Manager Visit Lab, Jennifer Fisher [facility]ATION CONS[facility] & CHILD [facility] 1..840.114 350.1.13.10 4.2.7.2.686 [id number] [facility] 2019-12-31 08:30:00 2019-12-31 08:30:00 Outpatient R JENNIFER CUTLER [facility] [id number] [facility] 2019-12-30 08:05:40 2019-12-30 08:54:25 Routine Visit Faculty, Adrián AllenJose Maria Tripp [facility] REM[facility]ATION CONS[facility] & CHILD [facility] 1..840.114 350.1.13.10 4.2.7.2.686 [id number] [facility] 2019-12-30 08:00:00 2019-12-30 08:00:00 Outpatient R [facility] [id number] [facility] 2019-12-27 00:00:00 2019-12-27 00:00:00 Telephone Benja Medina [facility] 1..840.114 350.1.13.10 4.2.7.2.686 [id number] [facility] 2019-12-26 15:30:00 2019-12-26 15:30:00 Outpatient R BENJA MEDINA [facility] [id number] [facility] 2019-12-26 09:33:06 2019-12-26 09:48:06 Finance Business Manager Visit Lab, Fabrice - Benja Medina [facility] 1..840.114 350.1.13.10 4.2.7.2.686 [id number] [facility] 2019-12-26 00:00:00 2019-12-26 00:00:00 Outpatient R BENJA MEDINA [facility] [id number] [facility] 2019-12-24 14:07:00 2019-12-24 17:08:00 Emergency Jenna Ortiz Mckenzie [facility] 1.2840.114 350.1.13.10 4.2.7.2.686 [id number] [facility] 2019-12-24 09:44:06 2019-12-24 10:19:33 Routine Visit Marvin Ortiz [facility] REMEDIATION CONS[facility] & CHILD [facility] 1.840.114 350.1.13.10 4.2.7.2.686 [id number] [facility] 2019-12-24 10:00:00 2019-12-24 10:00:00 Outpatient R MARVIN ORTIZ [facility] [id number] [facility] 2019-12-24 00:00:00 2019-12-24 00:00:00 Nurse Triage BowlesRosa [facility] 1.84.114 350.1.13.10 4.2.7.2.686 [id number] [facility] 2019-12-24 00:00:00 2019-12-24 00:00:00 Patient Secure Msg Doctor Unassigned, Garrison [facility] REMEDIATION CONS[facility] & CHILD [facility] 1.2.840.114 350.1.13.10 4.2.7.2.686 [id number] [facility] 2019-12-23 08:03:59 2019-12-23 13:59:47 Office Visit Benja Medina [facility] Medical Office Building 1.2.840.114 350.1.13.10 4.2.7.2.686 [id number] [facility] 2019-12-23 08:30:00 2019-12-23 08:30:00 Outpatient R BENJA MEDINA [facility] [id number] [facility] 2019-12-23 00:00:00 2019-12-23 00:00:00 Telephone Masel, Benja S [facility] Office Building 1.2840.114 350.1.13.10 4.2.7.2.686 [id number] [facility] 2019-12-23 00:00:00 2019-12-23 00:00:00 Telephone Benja Medina [facility] Medical Office Building 1.2840.114 350.1.13.10 4.2.7.2.686 [id number] [facility] 2019-12-23 00:00:00 2019-12-23 00:00:00 Patient Secure Msg Doctor Unassigned, Garrison [facility] 1.2840.114 350.1.13.10 4.2.7.2.686 [id number] [facility] 2019-12-23 00:00:00 2019-12-23 00:00:00 Patient Secure Msg Doctor Unassigned, Garrison [facility] REMEDIATION CONSULT[facility] MATERNAL & CHILD [facility] 1.2840.114 350.1.13.10 4.2.7.2.686 [id number] [facility] 2019-12-16 09:51:50 2019-12-16 10:43:33 Routine Visit Faculty, Amira Varela [facility] REMED[facility]ATION CONS[facility] MATERNAL & CHILD [facility] 1.2840.114 350.1.13.10 4.2.7.2.686 [id number] [facility] 2019-12-16 10:00:00 2019-12-16 10:00:00 Outpatient R [facility] [id number] [facility] 2019-12-09 00:00:00 2019-12-09 00:00:00 Orders Only Doctor Unassigned, Garrison [facility] 1.2840.114 350.1.13.10 4.2.7.2.686 [id number] [facility] 2019-12-05 00:00:00 2019-12-05 00:00:00 Patient Secure Msg Doctor Unassigned, Garrison [facility] 1.284.114 350.1.13.10 4.2.7.2.686 [id number] [facility] 2019-12-04 14:00:20 2019-12-04 14:45:20 Finance Business Manager Visit 1, Jessy Room Kyler Queen [facility] REMEDIATION CONSULT[facility] MATERNAL & CHILD [facility] 1.284.114 350.1.13.10 4.2.7.2.686 [id number] [facility] 2019-12-04 14:01:20 2019-12-04 14:37:50 Finance Business Manager Visit Lab/Michele Chavira Patricia [facility] REMEDIATION CONSULTANT [facility] CHILD [facility] 1.284.114 350.1.13.10 4.2.7.2.686 [id number] [facility] 2019-12-04 14:15:00 2019-12-04 14:15:00 Outpatient P [facility] [id number] [facility] 2019-12-03 11:15:00 2019-12-03 11:15:00 Outpatient P [facility] [id number] [facility] 2019-12-03 09:39:56 2019-12-03 10:01:46 Finance Business Manager Visit Ultrasound, Jenifer Hinson [facility] REMEDIATION CONSULTANT [facility] & CHILD [facility] 1.840.114 350.1.13.10 4.2.7.2.686 [id number] [facility] 2019-12-03 10:00:00 2019-12-03 10:00:00 Outpatient P [facility] [id number] [facility] 2019-12-03 00:00:00 2019-12-03 00:00:00 Abstract Marvin Ortiz [facility] REMEDIATION CONSULTANT [facility] & CHILD [facility] 1.2.840.114 350.1.13.10 4.2.7.2.686 [id number] [facility] 2019-11-28 10:30:52 2019-11-28 11:46:23 Routine Visit Risk, Ang-Rmchp-N p/High Marvin Ortiz [facility] REMEDIATION CONSULTANT [facility] MATERNAL & CHILD [facility] 1.2.840.114 350.1.13.10 4.2.7.2.686 [id number] [facility] 2019-11-28 10:30:00 2019-11-28 10:30:00 Outpatient R [facility] [id number] [facility] 2019-11-27 00:00:00 2019-11-27 00:00:00 Patient Secure Msg Doctor Unassigned, Garrison [facility] REMEDIATION CONSULTANT [facility] & CHILD [facility] 1.2840.114 350.1.13.10 4.2.7.2.686 [id number] [facility] 2019-11-22 00:00:00 2019-11-22 00:00:00 Patient Secure Msg Doctor Unassigned, Garrison [facility] REMEDIATION CONSULTANT [facility] CHILD [facility] 1.2.840.114 350.1.13.10 4.2.7.2.686 [id number] [facility] 2019-11-22 00:00:00 2019-11-22 00:00:00 Patient Secure Msg Doctor Unassigned, Garrison [facility] REMEDIATION CONSULTANT [facility] & CHILD [facility] 1.2.840.114 350.1.13.10 4.2.7.2.686 [id number] [facility] 2019-11-22 00:00:00 2019-11-22 00:00:00 Telephone Marvin Ortiz [facility] REMEDIATION CONSULT[facility] MATERNAL & CHILD [facility] 1.2.840.114 350.1.13.10 4.2.7.2.686 [id number] [facility] 2019-11-21 09:37:55 2019-11-21 13:26:51 Initial Visit Marvin Ortiz [facility] REMEDIATION CONSULT[facility] MATERNAL & [facility] 1.2.840.114 350.1.13.10 4.2.7.2.686 [id number] [facility] 2019-11-21 09:15:00 2019-11-21 09:15:00 Outpatient R MARVIN ORTIZ [facility] [id number] [facility] 2019-11-21 00:00:00 2019-11-21 00:00:00 Orders Only Doctor Unassigned, Garrison [facility] 1.2.840.114 350.1.13.10 4.2.7.2.686 [id number] [facility]
[2023-11-01] MEDS ORDERED: ONDANSETRON 4 MG/2 ML VIAL ONE (10:56)
[2023-11-01] MEDS ORDERED: MORPHINE 4 MG/ML SYR ONE (10:56)
[2023-11-01] MEDS ORDERED: NA CHLORIDE 0.9% 1,000 ML ONE (10:56)
[2023-11-01] MEDS ORDERED: LEVETIRACETAM 500 MG/5 ML VIAL IV ONE (10:57)
[2023-11-01] MEDS ORDERED: NA CHLORIDE 0.9% 100 ML ONE (10:57)
[2023-11-01 11:18] LABS: Absolute Eosinophils 0.3 K/uL (0-0.5); Absolute Lymphocytes (CBC) 2.6 K/uL (0.7-4.9); Absolute Monocytes 0.3 K/uL (0.1-1.3); Absolute Neutrophil 3.2 K/uL (1.8-8.0); Basophils % 0.5 % (0-1.3); Eosinophils % 4.7 % (0-4.4); Hematocrit 38.6 % (36.0-45.0); Hemoglobin 12.9 g/dL (12.0-15.0); Lymphocytes % 40.6 % (15.3-44.8); MCH 30.4 pg (27.0-35.0); MCHC 33.4 g/dL (32.0-36.0); MPV 7.6 fL (7.6-11.3); Monocytes % 4.6 % (3.3-12.3); Neutrophils % 49.6 % (41.7-73.7); Nucleated Red Blood Cells % 0.1 % (0-0); Platelets 335 thou/uL (152-406); RBC Red Blood Cell Count 4.24 M/uL (3.86-4.86); Red Cell Distribution Width 14.3 % (12.1-15.2)
[2023-11-01 11:33] LABS: Anion Gap 6.6 mEq/L (5.0-15.0)
[2023-11-01 11:34] LABS: Potassium 3.6 mEq/L (3.5-5.1)
--- NOTE | 2023-11-01 11:55 | EDPHYS ---
Physician Documentation [facility] Name: Cornelia Phillips Age: 38 yrs Sex: Female : 1985 Arrival Date: 11/01/2023 Time: 10:14 Bed 19 Private MD: ED Physician Fadi Crocker HPI: 10/31 10:29 This 38 yrs old Female presents to ER via Unassigned with complaints of rn seizure. 10:29 The patient presents with a history of multiple seizures. Seizure onset: this morning. rn Associated injury: The patient did not suffer any apparent associated injury. Current symptoms: headache. The patient has experienced similar episodes in the past. The patient has not recently seen a physician. Patient reports history of seizures and [place] [address] [place] Patient reports has not been taking her Keppra as prescribed because she has trouble getting refills so she has been spreading them out. Had a seizure last night as well. No fever. No recent injury or trauma. Does not feel sick. Feels identical to previous seizures with subsequent headache.. Historical: - Allergies: 10:45 Amoxicillin; db 10:45 Azithromycin; db 10:45 Erythromycin; db 10:45 Augmentin; db 10:45 PENICILLINS; db 10:45 tramadol; db - PMHx: 10:45 Hypothyroidism; Seizures; db - PSHx: 10:45 section; hysterectomy; db - Immunization history:: Adult Immunizations unknown. - Infectious Disease History:: Denies. - Family history:: not pertinent. - Social history:: Smoking status: Patient/guardian denies using tobacco. - Hospitalizations: : No recent hospitalization is reported. ROS: 10:29 Constitutional: Negative for fever, chills, and weight loss, Neck: Negative for injury, rn pain, and swelling, Cardiovascular: Negative for chest pain, palpitations, and edema, Respiratory: Negative for shortness of breath, cough, wheezing, and pleuritic chest pain, Abdomen/GI: Negative for abdominal pain, nausea, vomiting, diarrhea, and constipation, Back: Negative for injury and pain, MS/Extremity: Negative for injury and deformity, Skin: Negative for injury, rash, and discoloration, Neuro: Positive for headache and seizure Exam: 10:29 Constitutional: This is a well developed, well nourished patient who is awake, alert, rn and in no acute distress. Neck: Trachea midline, no masses palpated. No Meningismus. Cardiovascular: Regular rate and rhythm. No pulse deficits. Respiratory: No increased work of breathing, no retractions or nasal flaring. Abdomen/GI: Soft, non-tender Neuro: Awake and alert, GCS 15, oriented to person, place, time, and situation. Cranial nerves II-XII grossly intact. Motor strength 5/5 in all extremities. Sensory grossly intact. Cerebellar exam normal. 15:04 ECG was reviewed by the Attending Physician. rn Vital Signs: 10:10 BP 120 / 82; Pulse 67; Resp 16; Temp 97.8; Pulse Ox 99% on R/A; db 10:45 BP 95 / 60; Pulse 49; Resp 17; Pulse Ox 99% on R/A; db 11:00 BP 100 / 70; Pulse 50; Resp 14; Pulse Ox 99% on R/A; Weight 43.09 kg; Height 4 ft. 11 db in. ; 12:00 BP 109 / 75; Pulse 65; Resp 18; Pulse Ox 100% ; db 11:00 Body Mass Index 19.19 (43.09 kg, 149.86 cm) db [place] Coma Score: 10:10 Eye Response: spontaneous(4). Motor Response: obeys commands(6). Verbal Response: db confused(4). Total: 14. MDM: 10:15 Patient medically screened. rn 11:53 Differential diagnosis: seizure. Data reviewed: vital signs, nurses notes, lab test rn result(s), and as a result, I will discharge patient. Counseling: I had a detailed discussion with the patient and/or guardian regarding the historical points, exam findings, and any diagnostic results supporting the discharge/admit diagnosis, lab results, the need for outpatient follow up, to return to the emergency department if symptoms worsen or persist or if there are any questions or concerns that arise at home. Response to treatment: the patient's symptoms have markedly improved after treatment, and as a result, I will discharge patient. Special discussion: I discussed with the patient/guardian in detail that at this point there is no indication for admission to the hospital. It is understood, however, that if the symptoms persist or worsen the patient needs to return immediately for re-evaluation. Based on the history and exam findings, there is no indication for further emergent testing or inpatient evaluation. I discussed with the patient/guardian the need to see the neurologist for further evaluation of the symptoms. 10/31 10:17 Order name: CBC with Diff; Complete Time: 11:52 rn 10/31 10:17 Order name: Basic Metabolic Panel; Complete Time: 11:52 rn 10/31 10:17 Order name: Test, Urine rn 10/31 10:17 Order name: Urinalysis w/ reflexes rn 10/31 10:17 Order name: IV Start; Complete Time: 12:04 rn EC:04 Rate is 47 beats/min. Rhythm is regular. QRS [place] is Normal. MT interval is normal. QRS rn interval is normal. QT interval is normal. No Q waves. T waves are Normal. No ST changes noted. Clinical impression: Sinus bradycardia. Interpreted by me. Reviewed by me. Administered Medications: 11:00 Drug: NS 0.9% IV 1000 ml IV at 1000 ml once Route: IV; Rate: 1000 ml; Site: left hand; db 12:17 Follow up: Response: No adverse reaction; IV Status: Completed infusion; IV Intake: db 1000ml 11:05 Drug: Keppra IV 1000 mg IV at calculated rate once Route: IV; Rate: calculated rate; db Site: left hand; 12:17 Follow up: Response: No adverse reaction; IV Status: Completed infusion; IV Intake: db 100ml 11:12 Drug: morphine IVP or IV 4 mg IVP once over 4 mins Route: IVP; Infused Over: 4 mins; db Site: left hand; 12:18 Follow up: Response: No adverse reaction db 11:12 Drug: Ondansetron IVP 4 mg IVP once; over 2 minutes Route: IVP; Site: left hand; db 12:18 Follow up: Response: No adverse reaction db Disposition Summary: 11/01/23 11:54 Discharge Ordered Notes: Location: Home rn Problem: chronic rn Symptoms: have improved rn Condition: Stable rn Diagnosis - Epileptic seizures related to external causes, not intractable, without status rn epilepticus Followup: rn - With: Eddy Boyle MD - When: As needed - Reason: Recheck today's complaints, Re-evaluation by your physician Discharge Instructions: - Discharge Summary Sheet rn - Epilepsy rn - Seizure, Adult rn Forms: - Medication Reconciliation Form rn - Antibiotic furnace cooler - Prescription Opioid Use rn - Patient Portal Instructions rn - Leadership Thank You Letter rn Prescriptions: - Keppra 500 mg Oral tablet - take 1 tablet ORAL route every 12 hours; 60 tablet; Refills: 0, Product rn Selection Permitted Signatures: Dispatcher [employer] Fadi Nayak MD MD rn Benton, Danielle, RN RN db Corrections: (The following items were deleted from the chart) 10:30 10:29 Constitutional: Negative for fever, chills, and weight loss, Neck: Negative for rn injury, pain, and swelling, Cardiovascular: Negative for chest pain, palpitations, and edema, Respiratory: Negative for shortness of breath, cough, wheezing, and pleuritic chest pain, Abdomen/GI: Negative for abdominal pain, nausea, vomiting, diarrhea, and constipation, Back: Negative for injury and pain, MS/Extremity: Negative for injury and deformity, Skin: Negative for injury, rash, and discoloration, Neuro: Positive for headache and seizure rn 10:31 10:29 Constitutional: This is a well developed, well nourished patient who is awake, rn alert, and in no acute distress. rn
--- NOTE | 2023-11-01 11:55 | ER ---
Nurse's Notes [facility] Name: Cornelia Phillips Age: 38 yrs Sex: Female : 1985 Arrival Date: 11/01/2023 Time: 10:14 Bed 19 Private MD: Diagnosis: Epileptic seizures related to external causes, not intractable, without status epilepticus Presentation: 10/31 10:10 Chief complaint: EMS states: WITNESSED SEIZURES X [address]SE[address] HX OF db SEIZURES AND COMPLIANT WITH KEPPRA. HEADACHE NOW. Coronavirus screen: Client denies travel out of the [place] in the last 14 days. At this time, the client does not indicate any symptoms associated with coronavirus-19. Ebola Screen: Patient negative for fever greater than or equal to 101.5 degrees Fahrenheit, and additional compatible Ebola Virus Disease symptoms Patient denies exposure to infectious person. Patient denies travel to an Ebola-affected area in the 21 days before illness onset. No symptoms or risks identified at this time. Initial Sepsis Screen: Does the patient meet any 2 criteria? No. Patient's initial sepsis screen is negative. Does the patient have a suspected source of infection? No. Patient's initial sepsis screen is negative. Risk Assessment: Do you want to hurt yourself or someone else? Patient reports no desire to harm self or others. Onset of symptoms was November 01, 2023. 10:10 Method Of Arrival: EMS: [facility] db 10:10 Acuity: LYLA 3 db 10:10 Care prior to arrival: IV initiated. 20 GA, in the left hand. db Triage Assessment: 10:10 General: Appears in no apparent distress. comfortable, Behavior is calm, cooperative. db Pain: Denies pain. Neuro: Level of Consciousness is awake, alert, obeys commands. Historical: - Allergies: 10:45 Amoxicillin; db 10:45 Azithromycin; db 10:45 Erythromycin; db 10:45 Augmentin; db 10:45 PENICILLINS; db 10:45 tramadol; db - PMHx: 10:45 Hypothyroidism; Seizures; db - PSHx: 10:45 section; hysterectomy; db - Immunization history:: Adult Immunizations unknown. - Infectious Disease History:: Denies. - Family history:: not pertinent. - Social history:: Smoking status: Patient/guardian denies using tobacco. - Hospitalizations: : No recent hospitalization is reported. Screenin:19 [facility] ED Fall Risk Assessment (Adult) History of falling in the last 3 months, db including since admission No falls in past 3 months (0 pts) Confusion or Disorientation No (0 pts) Intoxicated or Sedated No (0 pts) Impaired Gait No (0 pts) Mobility Assist Device Used No (0 pt) Altered Elimination No (0 pt) Score/Fall Risk Level 0 - 2 = Low Risk Oriented to surroundings, Maintained a safe environment. Abuse screen: Denies threats or abuse. Denies injuries from another. Nutritional screening: No deficits noted. Tuberculosis screening: No symptoms or risk factors identified. Assessment: 11:00 Reassessment: Patient appears in no apparent distress at this time. Patient and/or db family updated on plan of care and expected duration. Pain level reassessed. Patient is alert, oriented x 3, equal unlabored respirations, skin warm/dry/pink. General: Appears in no apparent distress. comfortable, Behavior is calm, cooperative. Pain: Complains of pain in head. Neuro: Level of Consciousness is awake, alert, obeys commands, Oriented to person, place, time, situation. Cardiovascular: No deficits noted. Respiratory: Airway is patent Respiratory effort is even, unlabored, Respiratory pattern is regular, symmetrical. GI: No deficits noted. No signs and/or symptoms were reported involving the gastrointestinal system. : No deficits noted. No signs and/or symptoms were reported regarding the genitourinary system. EENT: No deficits noted. No signs and/or symptoms were reported regarding the EENT system. Derm: No deficits noted. No signs and/or symptoms reported regarding the dermatologic system. 12:16 Reassessment: Patient appears in no apparent distress at this time. Patient and/or db family updated on plan of care and expected duration. Pain level reassessed. Patient is alert, oriented x 3, equal unlabored respirations, skin warm/dry/pink. Patient states feeling better. Patient states symptoms have improved. General: Appears in no apparent distress. comfortable, Behavior is calm, cooperative. Neuro: Level of Consciousness is awake, alert, obeys commands, Oriented to person, place, time, situation. Vital Signs: 10:10 BP 120 / 82; Pulse 67; Resp 16; Temp 97.8; Pulse Ox 99% on R/A; db 10:45 BP 95 / 60; Pulse 49; Resp 17; Pulse Ox 99% on R/A; db 11:00 BP 100 / 70; Pulse 50; Resp 14; Pulse Ox 99% on R/A; Weight 43.09 kg; Height 4 ft. 11 db in. ; 12:00 BP 109 / 75; Pulse 65; Resp 18; Pulse Ox 100% ; db 11:00 Body Mass Index 19.19 (43.09 kg, 149.86 cm) db Vinny Coma Score: 10:10 Eye Response: spontaneous(4). Motor Response: obeys commands(6). Verbal Response: db confused(4). Total: 14. ED Course: 10:10 Arm band placed on. db 10:15 Patient arrived in ED. rn 10:15 Fadi Crocker MD is Attending Physician. rn 10:20 Maintain EMS IV. Dressing intact. Good blood return noted. Site clean \T\ dry. Gauge \T\ db site: 20 G LEFT HAND. Flushed left hand. 10:41 Bella Mendez, RN is Primary Nurse. db 10:44 Triage completed. db 11:00 Initial lab(s) drawn, by me, sent to lab. EKG done, by ED staff, reviewed by Bella Mendez RN. 11:19 Patient has correct armband on for positive identification. Bed in low position. Call db light in reach. Side rails up X 1. Seizure precautions initiated. Client placed on continuous cardiac and pulse oximetry monitoring. NIBP monitoring applied. personnel monitor on. Pulse ox on. NIBP on. Warm blanket given. Pillow given. 11:53 Eddy Boyle MD is Referral Physician. rn 12:17 Provided Education on: DISCHARGE. db 12:17 No provider procedures requiring assistance completed. IV discontinued, intact, db bleeding controlled, No redness/swelling at site. Administered Medications: 11:00 Drug: NS 0.9% IV 1000 ml IV at 1000 ml once Route: IV; Rate: 1000 ml; Site: left hand; db 12:17 Follow up: Response: No adverse reaction; IV Status: Completed infusion; IV Intake: db 1000ml 11:05 Drug: Keppra IV 1000 mg IV at calculated rate once Route: IV; Rate: calculated rate; db Site: left hand; 12:17 Follow up: Response: No adverse reaction; IV Status: Completed infusion; IV Intake: db 100ml 11:12 Drug: morphine IVP or IV 4 mg IVP once over 4 mins Route: IVP; Infused Over: 4 mins; db Site: left hand; 12:18 Follow up: Response: No adverse reaction db 11:12 Drug: Ondansetron IVP 4 mg IVP once; over 2 minutes Route: IVP; Site: left hand; db 12:18 Follow up: Response: No adverse reaction db Medication: 12:17 VIS not applicable for this client. db Intake: 12:17 IV: 100ml; Total: 100ml. db 12:17 IV: 1000ml; Total: 1100ml. db Outcome: 11:54 Discharge ordered by . rn 12:17 Discharged to home ambulatory, db 12:17 Condition: stable 12:17 Discharge instructions given to patient, Instructed on discharge instructions, follow up and referral plans. Prescriptions given X 1, 12:31 Patient left the ED. db Signatures: Fadi Crocker MD MD rn Benton, Danielle RN RN db
[2023-11-01 12:15] LABS: Specific Gravity 1.004 (1.005-1.030)
[2023-11-01 12:22] LABS: Specific Gravity < 1.005 (1.005-1.030); Sqamous Epithelial <5 /HPF (None Seen); Urine Bacteria >50 /HPF (<20); Urine Bilirubin NEGATIVE (Negative); Urine Blood Negative (Negative); Urine Clarity Turbid (Clear); Urine Color Colorless (Yellow); Urine Culture Reflex Order NOT NEEDED; Urine Glucose NEGATIVE (Negative); Urine Ketones NEGATIVE (Negative); Urine Microscopic Reflex YN ORDER UMIC; Urine Nitrite NEGATIVE (Negative); Urine Protein NEGATIVE (Negative); Urine RBC <5 /HPF (None Seen); Urine Urobilinogen Normal (Normal); Urine WBC <5 /HPF (<5); Urine pH 6.5 (5.0-7.0)
[2023-11-01 12:42] VITALS: BP 109/75; O2SAT 100
--- NOTE | 2023-11-02 14:11 | EKG ---
Test Date: 2023-11-01 Test Time: 11:04:26 Bed Setter: ARELY MEASUREMENT RESULTS: Intervals: Rate: 47 MT: 146 QRSD: 66 QT: 422 QTc: 373 Ecru: P: 61 MT: 146 QRS: 76 T: 63 INTERPRETIVE STATEMENTS: Marked sinus bradycardia Abnormal ECG Compared to ECG 06/15/2023 17:19:22 Sinus rhythm no longer present Electronically Signed On 11-02-23 14:07:23 CDT by Neil Estrada
== END 2023-11-01 12:31 | disposition home or self-care (01) ==
LOC: ER 10:14
DX: G40.509 Epileptic seizures related to external causes, not intractable, without status epilepticus (principal)
CPT/HCPCS: 36415; 80048; 81001; 81025; 85025; 93005; 96365; 96375; 99285; J1953; J2405; J7030